=== PATIENT | female | born 1965 | race Caucasian/White ===

== ENCOUNTER 2020-03-28 08:33 | Outpatient (CLI) | payer MEDICARE, MEDICAID, SELFPAY ==
--- NOTE | 2020-03-28 07:30 | XR_ITS ---
WS: [id number] XR KUB [id number] REASON FOR EXAM: bladder stones FINDINGS: The bladder stones have increased in size now measure 4.6 cm. Versus 2.99 cm on previous ex am 10/24/2017 there are 3 large stones present. There is evidence of a gamma nail the right hip joint satisfactory place. There is nonspecific gas and fecal stasis. XR/XR KUB [id number] IMPRESSION: Dramatically enlargement of the renal calculus
== END 2020-03-28 08:34 | disposition home or self-care (01) ==
LOC: RAD 08:40
PROVIDERS: Family Provider Family Medicine; PCP Family Medicine; Visit Provider Urology
DX: N21.0 Calculus in bladder (principal); N20.0 Calculus of kidney
CPT/HCPCS: 74018

== ENCOUNTER 2020-04-01 11:00 | Day surgery (SDC) | payer MEDICARE, MEDICAID, SELFPAY ==
[2020-04-01] VITALS (10 sets, daily range): BP systolic 89–152; BP diastolic 56–99; PULSE 88–108; RESP 9–19; TEMP 36.2–36.9; O2SAT 96–100
--- NOTE | 2020-04-01 | SCC_ITS ---
Procedure Done: 1. Extracorporeal shockwave lithotripsy to the bladder stones 2. Cystolitholapaxy with laser and stone fragment removal 14.6 seconds of fluoroscopic guidance, for a cumulative dose of 3.67 mGy, was provided to Dr. Jackson by the radiology department. C-arm images of the abdomen were saved for the patient's permanent record. [facility]
--- NOTE | 2020-04-01 | SC_ITS ---
WS: [id number] C-arm FL for Urology REASON FOR EXAM: C-ARM PICS IN OR FINDINGS: A stent is now seen on the right side in good position the right kidney down to the bladder .. SC/C-arm FL for Urology IMPRESSION: Stent in good position on the right side.
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
[2020-04-01] MEDS: sodium chloride 0.9% 1,000 ML 30 ML IV (13:08)
[2020-04-01] MEDS: levofloxacin-dextrose 5 % 500 MG/100 ML PREMIX 100 MG IV (13:10)
--- NOTE | 2020-04-01 13:23 | W.PM.OPSUD ---
Surgery/Procedure H&P Update DATE OF PROCEDURE: April 01, 2020 DATE H&P PERFORMED: 03/28/20 H&P UPDATE INFORMATION: I have reviewed H&P completed within last 30 days, I have examined patient prior to procedure and No changes to prior documentation PREOP DIAGNOSIS: 3 large bladder stones PLANNED PROCEDURE: Operation Date: 04/01/20 13:00 Proposed Procedures p ESWL 51752 81745 N21.0(Not Applicable) - Jorge A Jackson MD s Cystolitholapaxy(Not Applicable) - Jorge A Jackson MD
--- NOTE | 2020-04-01 16:25 | P.OP_ITS ---
Operative Report Date of procedure: April 01, 2020 Pre-op Diagnosis: 3 large bladder stones Post-op diagnosis: same Procedure Done: 1. Extracorporeal shockwave lithotripsy to the bladder stones 2. Cystolitholapaxy with laser and stone fragment removal Implants: None Pathology: Large amount of stone fragments Surgeon: Renetta Anesthesia: General Estimated blood loss: Minimal Complications: None Condition: stable Disposition: PACU Brief History: Destiny is a very pleasant 55-year-old white female partial quadriplegic with history of neurogenic bladder because of her injury and history of bladder stone formation having cleared 8 of 11 stones about 2.5 years ago. Unfortunately she failed to follow-up to clear the final 3 stones and recently presented with increasing dysreflexia type symptoms, recurrent UTIs, and incontinence and was found to have that the 3 remaining stones had almost doubled in size. She was admitted for treatment of the stones with planned ESWL and if necessary cystolitholapaxy to complete. Procedure: After routine preoperative evaluation examination and obtaining of informed consent she was taken to the operating suite on 04/01/2020 where general anesthesia was administered without difficulty after appropriate timeout was performed, SCDs confirmed to be functioning, preoperative antibiotics administered, beta-arsalan protocol confirmed. Positioned on the Dornier unit in supine position with a shock head positioned anteriorly. The bladder was filled with about 180 cc of sterile water and her suprapubic tube was clamped. Stones were easily identified and shockwave was initiated at an intensity of 6 at a rate of 60 and all 3 stones were shocked in sequence and repetitively for a total of 3500 shocks with significant change noted. She was then positioned in dorsolithotomy position and prepped and draped in the usual sterile fashion paying careful attention to avoiding pressure points. 23 Hungarian cystoscope with 30 degree lens was introduced into the bladder without difficulty under videoscopy. An Ellik evacuator was utilized to remove the small fragments. The remained multiple large fragments and some moderate sized fragments that required laser lithotripsy. Over the next hour and 1/2 to 2 hours the laser was utilized to fragment the remaining pieces into small enough fragments to be able to remove with an Ellik evacuator through 25 Hungarian cystoscope. This was tedious but ultimately successful. The bladder was inspected carefully after all the pieces were removed and it was in very good shape with no significant trauma. The suprapubic tube was unplugged and confirmed to be functioning well and it was placed to dependent drainage. Tolerated procedure well without complications and was awakened in the operating room and returned to the recovery room in stable condition. PLANS: 1. Follow-up with KUB in 6 months in my office. 2. Reinforced the importance of compliance with follow-up to avoid these kind of conditions again.
--- NOTE | 2020-04-01 16:50 | SUR.PHASEI ---
1632 PT TO PACU RESTLESS, SHAKING, WARM BLANKETS X 4 TO PT , PT LEG BAG TO STOMA LT YELLOW URINE NOTED TO TUBING, BILAT [id number] AND WORKING PT DENIES PAIN 1650 PT RESTING MORE QUIETLY NOT SHIVERING NOW, ALERT WHEN AWAKENED
--- NOTE | 2020-04-01 17:17 | SUR.PHASEI ---
1704 PT SLEEPS IF NOT DISTURBED DENIES PAIN VSS REPORT TO OPS URINE FLOWING THRU LUU TUBE NO CLOTS OR ISSUES.
[2020-04-01] MEDS: ondansetron 2 mg/ML SDV 2 mL 4 MG IVP (18:22)
[2020-04-08 01:45] LABS: Stone Source BLADDER STONE
== END 2020-04-01 18:44 | disposition home or self-care (01) ==
PROVIDERS: Visit Provider Urology
PROC: (CPT 50590; principal; 2020-04-01 13:00)
PROC: 0TCB8ZZ Extirpation of Matter from Bladder, Via Natural or Artificial Opening Endoscopic (ICD-10-PCS; CPT 50590; 2020-04-01 13:00)
PROC: (CPT 50590; 2020-04-01 13:00)
DX: N21.0 Calculus in bladder (principal); G82.50 Quadriplegia, unspecified
CPT/HCPCS: 50590; 52318; 12345; 76000; 82365; 88300; 96365; J1956; J2405; J2704; J3010; J7030

== ENCOUNTER 2020-11-07 09:44 | Inpatient (IN) | payer MEDICARE, MEDICAID, SELFPAY ==
[2020-11-07] VITALS (10 sets, daily range): BP systolic 72–147; BP diastolic 32–112; PULSE 72–106; RESP 16–18; TEMP 35.7–36.6; O2SAT 95–100
--- NOTE | 2020-11-07 10:37 | CT_ITS ---
WS: [id number] CT ABDOMEN PELVIS TECHNIQUE: Contrast-enhanced CT of the abdomen and pelvis with coronal and sagittal reformatted image s. CLINICAL INFORMATION: abd pain COMPARISON: CT September 25, 2017 DLP: 187.[address] scans at [facility] use at least one of these dose optimization techniques: automat ed exposure control; mA and/or kV adjustment per patient size (includes targeted exams where dose is matched to clinical indication); or iterative reconstruction. FINDINGS: Mild hepatomegaly. Diffuse fatty infiltration of the liver. Gallbladder is contracted. Lung bases are well aerated. Normal spleen. Normal GE junction. Normal caliber abdominal aorta. Aortic calcificatio n. Adrenal glands are normal. Normal renal parenchymal enhancement. No hydronephrosis. Varicosities in the pelvis. Small amount of free fluid in the pelvis. Suprapubic catheter. Bladder is decompressed. No evidence of high-grade small or large bowel obstruction. Induration with thickening involving the distal sigmoid colon and rectum. Recommend correlation for distal colitis/proctitis. Small amount of edema and fluid in the left gluteal cleft. This is partially visualized. Degenerative disc disease T11-T12 progressed since 2017. CT/CT abdomen pelvis w con* [id number] IMPRESSION: 1. Suprapubic catheter. Bladder is decompressed. Previously described bladder calculi have been removed. 2. Small amount of free fluid in the pelvis with diffuse transmural thickening and submucosal enhancement involving the distal sigmoid and rectum. Recommend correlation for distal colitis/proctitis. 3. Small amount of edema partially visualized left gluteal cleft. Recommend cl inical correlation for decubitus ulceration in this area. 4. Pelvic varicosities likely incidental and appear Unchanged from previous. Notified Aguila Fragoso DO at 11/07/2020 11:46 AM.
--- NOTE | 2020-11-07 10:38 | ECG_ITS ---
[facility] Test Date: 2020-11-07 Pat Name: Destiny Baez Department: Room: Gender: Female Bank Secrecy Act Officer: : 1965 Requested By: Aguila Damon Order Number: [id number] Robb MD: Lisa Guerin M.D. Measurements Intervals [place] Rate: 73 P: 63 VA: 84 QRS: 42 QRSD: 100 T: 75 QT: 414 QTc: 458 Interpretive Statements SINUS RHYTHM WITH SHORT VA INTERVAL WITH OCCASIONAL SUPRAVENTRICULAR PREMATURE COMPLEXES POSSIBLE RIGHT VENTRICULAR CONDUCTION DELAY [RSR (QR) IN V1/V2] No previous ECG available for comparison Electronically Signed On 11-08-2020 19:40:45 HOTEL OR MOTEL MANAGER by Lisa Guerin M.D. [id number] f
--- NOTE | 2020-11-07 10:38 | XR_ITS ---
WS: [id number] XR chest 1V portable [id number] REASON FOR EXAM: dyspnea/cough FINDINGS: The heart and mediastinum are within normal limits. Calcified granulomatous changes in both hemithoraces. No active pulmonary parenchymal or pleural disease. Thoracic scoliosis convex right. XR/XR chest 1V portable [id number] IMPRESSION: No acute chest abnormality.
--- NOTE | 2020-11-07 11:09 | W.ED.GENADLT ---
HPI - General Adult General: Chief complaint: General Medical Stated complaint: High BP Time Seen by Provider: 11/07/20 10:16 History of Present Illness: HPI narrative: 55-year-old female presents emergency room with complaint of swelling spell she has had for the last several months she estimates similar range of 3 to 4 months. She states they only happen when she is in a wheelchair. She is wheelchair-bound secondary to a cervical cord injury at C6-7 level. She denies any chest pain denies any shortness of breath or abdominal pain she states that when she is in her chair she crosses her legs her symptoms get better. Has not noticed any other exacerbating or relieving factors. Onset (ago): month(s) Severity: moderate Relieving factors: none Exacerbating factors: other (Sitting in chair) Associated symptoms: Reports diaphoresis; Deny chest pain, confusion, cough, decreased appetite, dyspnea, fevers/chills, headache(s), malaise, nausea, rash, palpitations, seizures, short of breath, syncope, vomiting or weakness Treatments prior to arrival: none Review of Systems Const: Reports: diaphoresis; Denies: malaise ENMT: Denies: throat pain, ear or mastoid pain, nasal discharge or nasal congestion Card: Denies: chest pain, palpitations or syncope Resp: Denies: dyspnea GI: Denies: vomiting : Denies: flank pain, difficulty voiding, dysuria, urinary frequency or urinary urgency Skin/Breast: Denies: rash Neuro: Denies: headache(s) PFSH ED PFSH: Medical History Autonomic dysreflexia Neurogenic bladder Quadriplegia Urinary retention Social History Smoking and tobacco status: never smoked Alcohol intake: current Alcohol intake frequency: holidays/special occasions only Adopted: No Caregiver/support person: No Lives independently: Yes Marital status: Current occupational status: employed History of recent travel: No Current gender identity: Female Physical Exam Const: COMMON NORMALS: no acute distress GENERAL APPEARANCE: cooperative and comfortable ORIENTATION/CONSCIOUSNESS: Yes awake, Yes oriented to person, Yes oriented to place and Yes oriented to time HENMT: COMMON NORMALS: normocephalic, atraumatic and hearing grossly normal bilaterally HEAD & SCALP: normocephalic and atraumatic Neck/C-Spine: COMMON NORMALS: no JVD Resp: COMMON NORMALS: normal respiratory effort, No retractions, No use of accessory muscles and clear to auscultation bilaterally AUSCULTATION: clear to auscultation bilaterally Cardio: COMMON NORMALS: no JVD, regular rate, regular rhythm and No murmurs present (Cardio) RATE: regular rate RHYTHM: regular rhythm GI: COMMON NORMALS: Soft to palpation and No hepatosplenomegaly present AUSCULTATION: Yes normoactive bowel sounds PALPATION: Yes Soft to palpation, No Tenderness to palpation present (GI), No Guarding due to palpation present (GI) and Yes No hepatosplenomegaly present Neuro: SENSORIUM/ORIENTATION: Yes oriented to person, Yes oriented to place and Yes oriented to time Skin: NARRATIVE SKIN EXAM: Open ulceration 3 to 4 cm irregular wound with exposure of subcutaneous tissue at the gluteal fold on the left. CT reading see below there is a large phlegmon. Course Vital Signs: Vital signs: Vital Signs Pulse Rate 77 11/07/20 12:02 Respiratory Rate 16 11/07/20 12:02 Blood Pressure 147/65 11/07/20 12:02 Pulse Oximetry 99 11/07/20 12:02 MDM - General Adult MDM Narrative: Medical decision making narrative: Gluteal abscess I think is the source of her sweats. Fortunately her white count is not elevated however I think this will continue to fester if it is not debrided. Cultures done we will start her on Zosyn and vancomycin discussed with Dr. Morrow and also discussed with Dr. Webster. Hospitalist admit surgery to consult we swabbed her for Covid as well in anticipation of surgical debridement. Urine shows some contamination. I do not believe it is an actual infection culture is being done she has an indwelling Ramos. Lab Data: Labs: Lab Results 11/07/20 11/07/20 11/07/20 Range/Units 11:08 11:20 11:20 WBC (4.0-10.0) 10^3/ uL RBC (4.1-5.3) 10^6/u L Hgb (11.5-15.3) g/dL Hct (37.0-47.0) % MCV (81-99) fL MCH (28.0-34.0) pg MCHC (30.0-36.0) g/dL RDW (12.1-15.1) % Plt Count (130-400) 10^3/c mm MPV (7.4-10.4) fL Neut % (Auto) % Lymph % (Auto) % [place] % (Auto) % Eos % (Auto) % Baso % (Auto) % Neut # (Auto) (1.8-7.7) 10^3/u L Lymph # (Auto) (0.8-4.8) 10^3/u L [place] # (Auto) (0.2-0.9) 10^3/u L Eos # (Auto) (0.0-0.8) 10^3/u L Baso # (Auto) (0.0-0.1) 10^3/u L Nucleated RBC % (a uto) % Nucleated RBCs # /100WBC Specimen Type Arterial Sample Site Radial, right ABG pH 7.41 (7.35-7.45) ABG pCO2 41.0 (35-45) mmHg ABG pO2 94.0 (80.0-100.0) mmH g ABG HCO3 26.2 H (22-26) mmol/L ABG O2 Saturation 97.9 ABG Base Excess 1.4 (-2.0-2.0) mmol/ L Angel Luis Test Pos A-a O2 Gradient 0.8 L (5-10) mmHg Hematocrit 33.4 L (37-47) % Hgb O2 Saturation 96.0 (95-100) % Carboxyhemoglobin 1.1 (0.4-20.1) %THgb Methemoglobin 0.9 (0.4-1.5) % Total Hemoglobin 10.9 L (12-16) g/dL Sodium 136.0 136 (131-143) mmol/L Potassium 3.9 4.1 (3.5-5.0) mmol/L Glucose 87.0 89 (70-115) mg/dL Ionized Calcium 1.2 (1.1-1.4) mmol/L O2 Delivery Device Room air FiO2 21.0 % Brick Extruder Operator ID glc Chloride 102 (98-107) mmol/L Carbon Dioxide 27 (22-29) mmol/L Anion Gap 11.1 (5-19) BUN 8 (6-20) mg/dL Creatinine 0.2 L (0.5-0.9) mg/dL GFR Calculation 368.8 H (90-130) mL/min Calculated Osmolal ity 280 L (285-295) mOsm/k g Lactic Acid 1.0 (0.5-2.2) mmol/L Calcium 8.6 (8.5-10.5) mg/dL Total Bilirubin 0.3 (0.15-1.2) mg/dL AST 12 (0-32) U/L ALT 10 (0-33) U/L Alkaline Phosphata se 116 H (35-105) IU/L Creatine Kinase 97 (26-192) U/L Troponin T Baselin e (0-10) ng/L Total Protein 5.7 L (6.6-8.7) g/dL Albumin 3.4 L (3.5-5.2) g/dL Globulin 2.3 (1.3-4.6) g/dL Lipase 20 (13-60) U/L TSH 0.56 (0.27-4.20) uIU/ mL Free T4 1.39 (0.82-1.77) ng/d L Urine Color (Yellow) Urine Appearance (CLEAR) Urine pH (5-7) Ur Specific Gravit y (1.005-1.030) Urine Protein (Negative) Urine Glucose (UA) (Normal) Urine Ketones (Negative) Urine Blood (Negative) Urine Nitrate (Negative) Urine Bilirubin (Negative) Urine Urobilinogen (Negative) mg/dL Ur Leukocyte Alice ase (Negative) Urine RBC (0-2) /hpf Urine WBC (0-5) /hpf Ur Squamous Epith Cells (0-5) /hpf Amorphous Sediment Urine Bacteria (NONE) /hpf Urine Mucus /hpf 11/07/20 11/07/20 11/07/20 Range/Units 11:20 11:20 11:20 WBC 7.7 (4.0-10.0) 10^3/ uL RBC 3.56 L (4.1-5.3) 10^6/u L Hgb 10.5 L (11.5-15.3) g/dL Hct 33.2 L (37.0-47.0) % MCV 93.3 (81-99) fL MCH 29.5 (28.0-34.0) pg MCHC 31.6 (30.0-36.0) g/dL RDW 11.9 L (12.1-15.1) % Plt Count 324 (130-400) 10^3/c mm MPV 9.4 (7.4-10.4) fL Neut % (Auto) 69.2 % Lymph % (Auto) 18.2 % [place] % (Auto) 10.9 % Eos % (Auto) 0.9 % Baso % (Auto) 0.5 % Neut # (Auto) 5.33 (1.8-7.7) 10^3/u L Lymph # (Auto) 1.4 (0.8-4.8) 10^3/u L [place] # (Auto) 0.8 (0.2-0.9) 10^3/u L Eos # (Auto) 0.1 (0.0-0.8) 10^3/u L Baso # (Auto) 0.0 (0.0-0.1) 10^3/u L Nucleated RBC % (a uto) 0 % Nucleated RBCs # 0.0 /100WBC Specimen Type Sample Site ABG pH (7.35-7.45) ABG pCO2 (35-45) mmHg ABG pO2 (80.0-100.0) mmH g ABG HCO3 (22-26) mmol/L ABG O2 Saturation ABG Base Excess (-2.0-2.0) mmol/ L Angel Luis Test A-a O2 Gradient (5-10) mmHg Hematocrit (37-47) % Hgb O2 Saturation (95-100) % Carboxyhemoglobin (0.4-20.1) %THgb Methemoglobin (0.4-1.5) % Total Hemoglobin (12-16) g/dL Sodium (131-143) mmol/L Potassium (3.5-5.0) mmol/L Glucose (70-115) mg/dL Ionized Calcium (1.1-1.4) mmol/L O2 Delivery Device FiO2 % Brick Extruder Operator ID Chloride (98-107) mmol/L Carbon Dioxide (22-29) mmol/L Anion Gap (5-19) BUN (6-20) mg/dL Creatinine (0.5-0.9) mg/dL GFR Calculation (90-130) mL/min Calculated Osmolal ity (285-295) mOsm/k g Lactic Acid (0.5-2.2) mmol/L Calcium (8.5-10.5) mg/dL Total Bilirubin (0.15-1.2) mg/dL AST (0-32) U/L ALT (0-33) U/L Alkaline Phosphata se (35-105) IU/L Creatine Kinase (26-192) U/L Troponin T Baselin e 8 (0-10) ng/L Total Protein (6.6-8.7) g/dL Albumin (3.5-5.2) g/dL Globulin (1.3-4.6) g/dL Lipase (13-60) U/L TSH (0.27-4.20) uIU/ mL Free T4 (0.82-1.77) ng/d L Urine Color Yellow (Yellow) Urine Appearance Clear (CLEAR) Urine pH 5 (5-7) Ur Specific Gravit y 1.020 (1.005-1.030) Urine Protein Neg (Negative) Urine Glucose (UA) Norm (Normal) Urine Ketones 1+ H (Negative) Urine Blood Neg (Negative) Urine Nitrate Positive H (Negative) Urine Bilirubin Neg (Negative) Urine Urobilinogen Norm (Negative) mg/dL Ur Leukocyte Alice ase 1+ H (Negative) Urine RBC None (0-2) /hpf Urine WBC 0-4 H (0-5) /hpf Ur Squamous Epith Cells 0-4 H (0-5) /hpf Amorphous Sediment Not Reportable Urine Bacteria 2+ H (NONE) /hpf Urine Mucus 1+ /hpf Discharge Plan Discharge Patient Disposition: Admitted As Inpatient Clinical Impression: Abscess, gluteal, left, Quadriplegia Condition: Stable Coding Level of Care Code ED Bankruptcy Legal Assistant for g Fwd Exam Detailed
[2020-11-07 11:20] LABS: ABG PH Result 7.41 (7.35-7.45); Alveolar-Arterial Oxygen Gradi 0.8 mmHg (5-10); Arterial Blood Gas Hematocrit 33.4 % (37-47); Base Excess ABG 1.4 mmol/L (-2.0-2.0); Blood Gas Allen Test Pos; Blood Gas Operator Identificat glc; Blood Gas Sample Site Radial, right; Blood Gas Sample Type Arterial; Carboxyhemoglobin 1.1 %THgb (0.4-20.1); HCO3 ABG 26.2 mmol/L (22-26); Ionized Calcium Level - ABG 1.2 mmol/L (1.1-1.4); Methemoglobin 0.9 % (0.4-1.5); Oxygen Device ROOM AIR; Oxygen Saturation ABG 97.9; Potassium Level - ABG 3.9 mmol/L (3.5-5.0); Total Hemoglobin 10.9 g/dL (12-16)
[2020-11-07 11:42] LABS: Basophils % 0.5 %; Eosinophils # 0.1 10^3/uL (0.0-0.8); Eosinophils % 0.9 %; Hematocrit 33.2 % (37.0-47.0); Hemoglobin 10.5 g/dL (11.5-15.3); Lymphocytes # 1.4 10^3/uL (0.8-4.8); Lymphocytes % 18.2 %; Mean Corpuscular HGB Conc 31.6 g/dL (30.0-36.0); Mean Corpuscular Hemoglobin 29.5 pg (28.0-34.0); Mean Corpuscular Volume 93.3 fL (81-99); Mean Platelet Volume 9.4 fL (7.4-10.4); Monocytes # 0.8 10^3/uL (0.2-0.9); Monocytes % 10.9 %; Neutrophils # 5.33 10^3/uL (1.8-7.7); Neutrophils % 69.2 %; Nucleated Red Blood Cells % 0 %; Platelet Count 324 10^3/cmm (130-400); Red Blood Count 3.56 10^6/uL (4.1-5.3); Red Cell Distribution Width 11.9 % (12.1-15.1); White Blood Count 7.7 10^3/uL (4.0-10.0)
--- NOTE | 2020-11-07 12:04 | CT_ITS ---
WS: [id number] Contrast enhanced CTA of the left pelvis and lower extremity TECHNIQUE: Contrast enhanced CTA with coronal and sagittal reformatted images. CLINICAL INFORMATION: ABSCESS L BUTTOCK COMPARISON: CT abdomen pelvis earlier today DLP: 345.[address] scans at [facility] use at least one of these dose optimization techniques: automat ed exposure control; mA and/or kV adjustment per patient size (includes targeted exams where dose is matched to clinical indication); or iterative reconstruction. FINDINGS: In the left gluteal cleft there is soft tissue thickening with surrounding induration extending to th e perineum and adjacent skin with ulceration. Central low-attenuation phlegmon/abscess. Small amount of central air measures 2.2 x 1.2 x 2.1 cm. Induration and soft tissue edema extending to the left po sterior inferior pubic ramus with a small amount of adjacent sclerosis. No evidence of destructive os teomyelitis. Osteopenia. Partially visualized pelvic varicosities. Suprapubic catheter. A few prominent left ingui nal lymph nodes likely reactive. Left common femoral and superficial femoral arteries are patent. CT/[place] [id number] IMPRESSION: 1. Ulceration involving the left gluteal region extending to the perineum with diffuse soft tissue thickening and small central fluid-filled cavitation measu ring 2.2 x 1.2 x 2.1 cm consistent with phlegmon/abscess. This does not appear easily drainable. 2. Small amount of sclerosis in the adjacent left pubic ramus. No destructive osteomyelitis. 3. Focal ulceration along the medial gluteal cleft/peritoneum measures 2.3 x 1 .9 cm Attempted notification Aguila Fragoso DO at 11/07/2020 1:01 PM.
[2020-11-07 12:12] LABS: Troponin(5th) Baseline 8 ng/L (0-10)
[2020-11-07 12:19] LABS: Alanine Aminotransferase 10 U/L (0-33); Albumin Level 3.4 g/dL (3.5-5.2); Alkaline Phosphatase 116 IU/L (35-105); Anion Gap 11.1 (5-19); Aspartate Amino Transferase 12 U/L (0-32); Blood Urea Nitrogen 8 mg/dL (6-20); Calcium 8.6 mg/dL (8.5-10.5); Carbon Dioxide 27 mmol/L (22-29); Chloride 102 mmol/L (98-107); Creatine Phosphokinase 97 U/L (26-192); Free T4 Free Thyroxine 1.39 ng/dL (0.82-1.77); Globulin 2.3 g/dL (1.3-4.6); Glomerular Filtration Rate 368.8 mL/min (90-130); Glucose 89 mg/dL (65-115); Lipase 20 U/L (13-60); Osmolality Calculated 280 mOsm/kg (285-295); Potassium 4.1 mmol/L (3.5-5.1); Sodium 136 mmol/L (136-145); Thyroid Stimulating Hormone 0.56 uIU/mL (0.27-4.20); Total Bilirubin 0.3 mg/dL (0.15-1.2); Total Protein 5.7 g/dL (6.6-8.7)
[2020-11-07 12:23] LABS: Urine Appearance Clear (CLEAR); Urine Color Yellow (Yellow); pH Urine 5 (5-7)
[2020-11-07 12:24] LABS: Add Urine Microscopic? YES; Bacteria Urine 2+ /hpf; Bilirubin Urine Neg (Negative); Blood Urine Neg (Negative); Glucose Urine UA Norm (Normal); Ketones Urine 1+ (Negative); Leukocyte Esterase Urine 1+ (Negative); Nitrate Urine Positive (Negative); Protein Urine Neg (Negative); Squamous Epithelial Cell Urine 0-4 /hpf (0-5); Urobilinogen Urine Norm (Negative); WBC Urine 0-4 /hpf (0-5)
[2020-11-07 12:25] LABS: Add Urine Culture? Yes; Mucus Urine 1+ /hpf
--- NOTE | 2020-11-07 12:38 | ECG_ITS ---
[facility] Test Date: 2020-11-07 Pat Name: Destiny Baez Department: Room: Gender: Female Superintendent Distribution: : 1965 Requested By: Aguila Damon Order Number: [id number] Robb MD: Lisa Guerin M.D. Measurements Intervals [place] Rate: 72 P: 62 LA: 100 QRS: 61 QRSD: 90 T: 75 QT: 390 QTc: 430 Interpretive Statements SINUS RHYTHM WITH SHORT LA INTERVAL POSSIBLE RIGHT VENTRICULAR CONDUCTION DELAY [RSR (QR) IN V1/V2] VOLTAGE CRITERIA FOR LVH [MEETS CRITERIA IN ONE OF: R(aVL), S(V1), R(V5), R(V5/V6)+S(V1)] Compared to ECG 11/07/2020 11:11:26 Left ventricular hypertrophy now present Electronically Signed On 11-08-2020 20:15:27 MIRROR SILVERER by Lisa Guerin M.D. [email or web address] women [email or web address] [email or web address].[email or web address]/[id number] f
[2020-11-07] MEDS: iohexol 350 mg/mL 100 mL Btl IV (12:49)
[2020-11-07] MEDS: levofloxacin-dextrose 5 % 750 MG/150 ML PREMIX 100 MG IV (13:22)
[2020-11-07] MEDS: vancomycin 1,000 MG in sodium chloride 0.9% 250 ML 250 MG IV (13:22)
[2020-11-07 13:54] LABS: Troponin 5 2HR 8.17 ng/L (0-10); Troponin 5 2HR Delta 0.17 ABS# (0-10)
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
--- NOTE | 2020-11-07 15:55 | PC.NURSE ---
Room not clean. Primary nurse will call back once room is ready.
--- NOTE | 2020-11-07 16:38 | ECG_ITS ---
[facility] Test Date: 2020-11-07 Pat Name: Destiny Baez Department: Room: Gender: Female Core Shaper: : [id number] Requested By: Aguila Damon Order Number: [id number] Robb MD: Lisa Guerin M.D. Measurements Intervals Daniels Rate: 85 P: 69 MD: 94 QRS: 66 QRSD: 90 T: 76 QT: 377 QTc: 450 Interpretive Statements SINUS RHYTHM WITH SHORT MD INTERVAL POSSIBLE RIGHT VENTRICULAR CONDUCTION DELAY [RSR (QR) IN V1/V2] MODERATE VOLTAGE CRITERIA FOR LVH, CONSIDER NORMAL VARIANT [MEETS CRITERIA IN ONE OF: R(aVL), S(V1), R(V5), R(V5/V6)+S(V1)] Compared to ECG 11/07/2020 12:47:24 No significant changes Electronically Signed On 11-08-2020 20:10:41 CNC GRINDER by Lisa Guerin M.D. [email or web address]
--- NOTE | 2020-11-07 16:56 | PC.NURSE ---
Room not ready. Nurse will call once ready.
[2020-11-07 17:41] LABS: Troponin 5 6HR 8.17 ng/L (0-10); Troponin 5 6HR Delta 0.17 ng/L (0-12)
[2020-11-07 18:29] LABS: Glucose Point of Care 107 mg/dL (70-110)
[2020-11-07] MEDS: lactated ringers 1,000 ML 30 ML IV (18:35)
[2020-11-07] MEDS: famotidine 20 mg Tablet PO (18:35)
[2020-11-07] MEDS: oxybutynin 5 mg Tablet PO (20:58)
[2020-11-07] MEDS: vancomycin 750 MG in sodium chloride 0.9% 250 ML 250 MG IV (20:59)
[2020-11-08] VITALS (12 sets, daily range): BP systolic 77–158; BP diastolic 52–88; PULSE 68–93; RESP 16–20; TEMP 36.6–37.9; O2SAT 94–99
[2020-11-08 04:20] LABS: Basophils % 0.7 %; Eosinophils # 0.1 10^3/uL (0.0-0.8); Eosinophils % 2.2 %; Hematocrit 32.8 % (37.0-47.0); Hemoglobin 10.4 g/dL (11.5-15.3); Lymphocytes # 1.8 10^3/uL (0.8-4.8); Lymphocytes % 33.4 %; Mean Corpuscular HGB Conc 31.7 g/dL (30.0-36.0); Mean Corpuscular Hemoglobin 28.9 pg (28.0-34.0); Mean Corpuscular Volume 91.1 fL (81-99); Monocytes # 0.7 10^3/uL (0.2-0.9); Monocytes % 12.5 %; Neutrophils # 2.73 10^3/uL (1.8-7.7); Nucleated Red Blood Cells % 0 %; Platelet Count 314 10^3/cmm (130-400); Red Cell Distribution Width 12.1 % (12.1-15.1); White Blood Count 5.4 10^3/uL (4.0-10.0)
[2020-11-08 04:41] LABS: Alanine Aminotransferase < 5 U/L (0-33); Albumin Level 3.2 g/dL (3.5-5.2); Alkaline Phosphatase 111 IU/L (35-105); Anion Gap 10.8 (5-19); Aspartate Amino Transferase 8 U/L (0-32); Blood Urea Nitrogen 8 mg/dL (6-20); Calcium 8.9 mg/dL (8.5-10.5); Carbon Dioxide 27 mmol/L (22-29); Chloride 105 mmol/L (98-107); Globulin 2.9 g/dL (1.3-4.6); Glucose 107 mg/dL (65-115); Magnesium 1.9 mg/dL (1.7-2.3); Osmolality Calculated 287 mOsm/kg (285-295); Potassium 3.8 mmol/L (3.5-5.1); Sodium 139 mmol/L (136-145); Total Bilirubin 0.2 mg/dL (0.15-1.2); Total Protein 6.1 g/dL (6.6-8.7)
[2020-11-08 04:42] LABS: Ferritin 151 ng/mL (15-150); Iron 21 ug/dL (37-145); Percent Saturation 13.6 % (20-50); Total Iron Binding Capacity 154 mcg/dl; Unsaturated Iron Binding 133 ug/dL (112-347)
[2020-11-08 04:58] LABS: Vitamin B12 417 pg/mL (232-1245)
[2020-11-08] MEDS: oxybutynin 5 mg Tablet PO ×2 (06:02→21:53)
[2020-11-08] MEDS: vancomycin 750 MG in sodium chloride 0.9% 250 ML 250 MG IV ×3 (06:02→21:53)
[2020-11-08 06:25] LABS: Folate Level 12.8 ng/mL (4.8-37.3)
[2020-11-08] MEDS: levofloxacin-dextrose 5 % 500 MG/100 ML PREMIX 100 MG IV (08:10)
--- NOTE | 2020-11-08 08:47 | PM.PN ---
Subjective Subjective: Interval history: Patient denies shortness of breath or chest pain this morning. She is n.p.o. this morning and is scheduled to have debridement procedure. Covid test is still pending. Vitals/I&O/Wt Last Vital Signs Temp 98.8 F 11/08/20 07:57 Pulse 69 11/08/20 07:57 Resp 18 11/08/20 07:57 BP 158/52 11/08/20 07:57 Pulse Ox 97 11/08/20 07:57 11/07/20 11/08/20 11/08/20 22:59 06:59 14:59 Intake Total 370 / 370 Output Total 1300 / 1300 Balance 370 / 370 -1300 / -930 Weight last 48 hrs Weight 54.431 kg Physical Exam Narrative: EXAM NARRATIVE: Patient is alert and oriented x3. She is not in any distress. Her heart is regular and lungs are clear. Abdomen is soft. She is moving her upper extremities well except her hands. Both lower extremities are paralyzed. Data : 11/08/20 04:00 11/08/20 04:00 Micro: Microbiology 11/07/20 17:10 Blood Culture - Preliminary Blood SPECIMEN COLLECTED 11/07/20 11:25 Blood Culture - Preliminary Blood SPECIMEN COLLECTED A&P Assessment and plan (1) Abscess, gluteal, left: Status: Acute (2) Neurogenic bladder: Status: Acute (3) Quadriplegia: Status: Acute (4) Anemia: Appears chronic normocytic with some evidence of iron deficiency but normal vitamin B12 and folate level. Status: Acute (5) Constipation due to neurogenic bowel: Status: Acute Additional A&P Information PLAN: Continue vancomycin and Levaquin as well as rest of the medications including IV fluids Awaiting surgical debridement. Attestations Medical Necessity Statement*: Patient with abscess requires close inpatient monitoring and treatment including surgical intervention. Coding Level of Care Code Acute Collar Packer for [facility] Diagnoses Abscess, gluteal, left L02.31 Neurogenic bladder N31.9 Quadriplegia G82.50 Anemia D64.9 Constipation due to neurogenic bowel K59.00
--- NOTE | 2020-11-08 09:23 | PC.NURSE ---
surgery Pt went down to surgery at 0859.
--- NOTE | 2020-11-08 09:27 | PC.OT ---
OT NOTE: HOLD EVALUATION TODAY DUE TO SCHEDULED I&D
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
[2020-11-08] MEDS: lidocaine 2% INJ 20 mL INJECTION (12:35)
--- NOTE | 2020-11-08 12:43 | PM.OP ---
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 Procedure Done: Incision and drainage of left gluteal abscess Sharp debridement of abscess cavity Implants: Large piece of Surgicel followed by packing 1 inch Nu Gauze impregnated and lidocaine 2% Specimens removed/disposition: Swabs for cultures and sensitivities Tissues for cultures and sensitivities Surgeon: Cristian Bell Inside Sales Executive: technical operations specialist Emmanuelle and medical student Miryam Harris nurse Chuyita Anesthesia: MAC (Nirali Carrington) Estimated blood loss (mL): 5 Condition: stable Disposition: floor Brief History: This is a pleasant 55 years old female patient presents with left gluteal abscess as pressure injury ulcer.Further history taking physical examination and reviewing the chart and images with my personal interpretation.I did preparole counseling aide the patient for incision and drainage in the OR and she did agree to proceed accordingly. Procedure: Patient was identified in the holding area and was taken back to the operating room and the correct site and side were marked by me, patient was first placed in supine position IV propofol was infused by the anesthesia provider, patient was already on therapy IV antibiotics were given per protocol,Time-out was done verifying the patient's name/date of /planned procedure and destination after the procedure, all were in agreement. Patient was then placed a right lateral position position were all pressure points were padded, Prep and drape was done thereafter under the usual sterile technique. The size of the ulcer looked to be smaller than the one appreciated yesterday likely patient was having edema that subsided,left perianal abscess was appreciated with the measurements of 2.5 x 2.5 x [address] to the muscle layer. Sinus draining pus was appreciated, hemostat was introduced after swabs were taken for culture and there was an undermining between 6 and 9:00 with a distance about 4 cm caudad. Drainage of the abscess cavity was done and all loculations were taken down by the examining finger.Appropriate and sharp curettage was done to the abscess cavity followed by copious and thorough irrigation. Hemostasis was then achieved. I decided at this point to introduce a vessel loop with a counter incision caudad towards the undermining portion of the ulcer for flossing in the future, a large piece of Surgicel was introduced into the abscess cavity to secure hemostasis followed by packing with 1 inch Nu Gauze impregnated and lidocaine 1%.followed by ABD.A surgical pants was then placed to hold the dressing in place. The vessel loop was tied down with 3-0 silk sutures. Predebridement measurements 2.5 x 2.5 x 0[address] to the muscle layer Post debridement measurements 2.5 x 2.5 x 0[address] to the muscle layer Count was completed at the end of the procedure, patient was then taken to the recovery room in stable condition I was present for the whole entire procedure
--- NOTE | 2020-11-08 14:56 | ANE.PACU2 ---
Inpatient post-anesthesia follow up: Airway intact: Yes Vital signs: Temperature 98.4 F Pulse Rate [Left R adial] 106 Pulse Rate 74 Respiratory Rate 18 Blood Pressure [Le ft Arm] 145/112 Blood Pressure 118/79 Pulse Oximetry 94 Oxygen Delivery Me thod Room Air Oxygen Flow Rate Fraction of Inspir ed Oxygen Hydration adequate: Yes Nausea and vomiting: No Pain level: 2 Mental status: Baseline
[2020-11-08] MEDS: morphine 4 mg/mL SDV 1 mL 2 MG IVP (15:29)
[2020-11-08 16:05] LABS: Coronavirus Lab Test PTC Negative
[2020-11-08] MEDS: famotidine 20 mg Tablet PO (17:16)
[2020-11-09 04:41] VITALS: BP 132/77; PULSE 87; RESP 18; TEMP 37.1; O2SAT 96
[2020-11-09 05:28] LABS: Alanine Aminotransferase 8 U/L (0-33); Alkaline Phosphatase 100 IU/L (35-105); Aspartate Amino Transferase 9 U/L (0-32); Blood Urea Nitrogen 8 mg/dL (6-20); Calcium 8.4 mg/dL (8.5-10.5); Carbon Dioxide 26 mmol/L (22-29); Chloride 105 mmol/L (98-107); Globulin 2.6 g/dL (1.3-4.6); Glucose 115 mg/dL (65-115); Osmolality Calculated 287 mOsm/kg (285-295); Sodium 139 mmol/L (136-145); Total Bilirubin 0.2 mg/dL (0.15-1.2); Total Protein 5.6 g/dL (6.6-8.7)
[2020-11-09] MEDS: vancomycin 750 MG in sodium chloride 0.9% 250 ML 250 MG IV ×3 (05:30→20:47)
[2020-11-09] MEDS: lactated ringers 1,000 ML 30 ML IV (05:30)
[2020-11-09] MEDS: oxybutynin 5 mg Tablet PO ×2 (06:17→20:46)
--- NOTE | 2020-11-09 07:27 | PM.PN ---
Subjective Subjective: Interval history: Patient is stable, no acute events overnight, undergone incision and drainage of left gluteal abscess stage IV. Cultures were sent. Vitals/I&O/Wt Last Vital Signs Temp 98.7 F 11/09/20 04:41 Pulse 87 11/09/20 04:41 Resp 18 11/09/20 04:41 BP 132/77 11/09/20 04:41 Pulse Ox 96 11/09/20 04:41 11/08/20 11/09/20 11/09/20 22:59 06:59 14:59 Intake Total 500 / 1110 1000 / 2110 Output Total 675 / 680 1000 / 1680 Balance -175 / 430 0 / 430 Weight last 48 hrs Weight 120 lb Physical Exam Narrative: EXAM NARRATIVE: Patient is conscious alert oriented X3 BMI 20 Physical examination was done in the presence of patient's caring nurse Patricai Left gluteal abscess cavity is clean no residual purulent discharge and vessel loop in place. No surrounding cellulitis. Surgicel and packing was removed by me bedside and flushing of the wound was done with saline flushes followed by repacking with 1 inch Nu Gauze then ABD and paper tape. Data : 11/08/20 04:00 11/09/20 04:13 Micro: Microbiology 11/07/20 17:10 Blood Culture - Preliminary Blood NEGATIVE TO DATE 11/08/20 12:39 Gram Stain - Final Buttock 11/08/20 12:39 Gram Stain - Final Buttock 11/07/20 11:25 Blood Culture - Preliminary Blood NEGATIVE TO DATE A&P Assessment and plan (1) Abscess, gluteal, left: From surgical standpoint of view: 1-nutrition optimization 2-wound care in the form of packing the wound daily with 1 inch Nu Gauze wet-to-dry using saline, vessel loop flossing after irrigation of the wound with saline followed by ABDs 3-management of medical comorbidities 4-physical therapy consultation when needed 5-assurance and education 6-follow-up at the wound care center on weekly basis. 7-we will defer antimicrobial therapy to hospitalist service based on cultures and sensitivities 8-offloading and a doughnut should be used to avoid pressure on the ulcer cavity From surgical standpoint of view patient can be discharged and follow-up at the wound care center. Assurance and education All questions have been answered and all concerns have been addressed to patient's satisfaction. Status: Acute Attestations Medical Necessity Statement*: Continue hospitalization for medical and surgical care for now Time Spent in Patient Care: 16 - 35 minutes (>than 50% of time spent in counselling and/or direct pt care on unit). 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
[2020-11-09 08:00] VITALS: BP 124/75; PULSE 93; RESP 16; TEMP 37.3; O2SAT 96
[2020-11-09] MEDS: famotidine 20 mg Tablet PO ×2 (08:25→18:00)
[2020-11-09] MEDS: levofloxacin-dextrose 5 % 500 MG/100 ML PREMIX 100 MG IV (08:25)
[2020-11-09 11:19] VITALS: BP 97/56; PULSE 94; RESP 16; TEMP 37.9; O2SAT 93
[2020-11-09 11:57] VITALS: BP 117/72; PULSE 88; TEMP 38.1; O2SAT 96
--- NOTE | 2020-11-09 13:23 | P.PN_ITS ---
Subjective Subjective: Interval history: Patient denies shortness of breath or chest pain this morning. Reports that every time she sits up her body shifts and bends over the left side which is likely the reason of her getting this ulcer. She is asking if there is any brace or support she can get to avoid this bending when she sits in her chair. When laying flat she is straight. She noted to have fever 100.[address] Perez yesterday. She has stage IV ulcer involving muscle but not the bone. Cultures are still pending. Vitals/I&O/Wt Last Vital Signs Temp 100.6 F H 11/09/20 11:57 Pulse 88 11/09/20 11:57 Resp 16 11/09/20 11:19 BP 117/72 11/09/20 11:57 Pulse Ox 96 11/09/20 11:57 11/08/20 11/09/20 11/09/20 22:59 06:59 14:59 Intake Total 500 / 1210 1000 / 2210 192 / 192 Output Total 675 / 680 1000 / 1680 Balance -175 / 530 0 / 530 192 / 192 Physical Exam Narrative: EXAM NARRATIVE: Patient is alert and oriented x3. She is not in any distress. Her heart is regular and lungs are clear. Abdomen is soft. She is moving her upper extremities well except her hands. Both lower extremities are paralyzed. Data : 11/08/20 04:00 11/09/20 04:13 Micro: Microbiology 11/08/20 12:39 Gram Stain - Final Buttock Tissue Culture - Preliminary 11/08/20 12:39 Gram Stain - Final Buttock Wound Culture - Preliminary 11/07/20 11:20 Urine Culture - Final Urine,Clean Catch Enterococcus faecalis 11/07/20 17:10 Blood Culture - Preliminary Blood NEGATIVE TO DATE 11/07/20 11:25 Blood Culture - Preliminary Blood NEGATIVE TO DATE A&P Assessment and plan (1) Abscess, gluteal, left: Status: Acute (2) Neurogenic bladder: Status: Acute (3) Quadriplegia: Status: Acute (4) Anemia: Appears chronic normocytic with some evidence of iron deficiency but normal vitamin B12 and folate level. Status: Acute (5) Constipation due to neurogenic bowel: Status: Acute Additional A&P Information PLAN: Continue vancomycin and Levaquin as well as IV fluids. Awaiting culture results Will touch base with Dr. Jacobsen to see if anything can be done from orthopedic standpoint to keep patient's body straight when she sits up. Awaiting appropriate equipment to be arranged for patient to be discharged. Attestations Medical Necessity Statement*: Patient with stage IV ulcer and now with episodes of fever requires close inpatient monitoring and treatment until cultures are back for appropriate oral antibiotic transition. 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
[2020-11-09 15:44] VITALS: BP 131/73; PULSE 94; RESP 16; TEMP 37.9; O2SAT 97
[2020-11-09 20:51] VITALS: BP 116/60; PULSE 89; RESP 18; TEMP 36.8; O2SAT 97
[2020-11-10 00:58] VITALS: BP 146/84; PULSE 82; RESP 18; TEMP 37.3; O2SAT 98
[2020-11-10 04:58] VITALS: BP 135/74; PULSE 87; RESP 18; TEMP 36.7; O2SAT 97
[2020-11-10] MEDS: vancomycin 750 MG in sodium chloride 0.9% 250 ML 250 MG IV (06:01)
[2020-11-10] MEDS: oxybutynin 5 mg Tablet PO ×2 (06:02→20:24)
[2020-11-10] MEDS: lactated ringers 1,000 ML 30 ML IV (06:04)
[2020-11-10 06:47] LABS: Alanine Aminotransferase 9 U/L (0-33); Albumin Level 3.7 g/dL (3.5-5.2); Alkaline Phosphatase 77 IU/L (35-105); Aspartate Amino Transferase 16 U/L (0-32); Blood Urea Nitrogen 15 mg/dL (6-20); Calcium 8.7 mg/dL (8.5-10.5); Carbon Dioxide 22 mmol/L (22-29); Chloride 97 mmol/L (98-107); Globulin 2.8 g/dL (1.3-4.6); Glomerular Filtration Rate 57.6 mL/min (90-130); Glucose 96 mg/dL (65-115); Osmolality Calculated 279 mOsm/kg (285-295); Sodium 134 mmol/L (136-145); Total Bilirubin 0.7 mg/dL (0.15-1.2); Total Protein 6.5 g/dL (6.6-8.7)
[2020-11-10 08:00] VITALS: BP 150/81; PULSE 80; RESP 17; TEMP 37.4; O2SAT 97
[2020-11-10] MEDS: famotidine 20 mg Tablet PO ×2 (08:22→17:00)
[2020-11-10] MEDS: levofloxacin-dextrose 5 % 500 MG/100 ML PREMIX 100 MG IV (08:22)
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
--- NOTE | 2020-11-10 10:44 | PC.SOCIAL ---
IMM update Pg. 2 of IMM updated and reviewed with patient who verbalized understanding. Copy provided.
--- NOTE | 2020-11-10 11:23 | P.PN_ITS ---
Subjective Subjective: Interval history: Patient denies shortness of breath or chest pain this morning. She is afebrile and reports that she had no episodes of diaphoresis. Her wound dressing was not changed this morning. Patient was seen by Dr. Jacobsen with recommendation to have brace by OT. Creatinine increased to 1.0 this morning. She makes urine and reports that usually at home she drinks large amount of fluids and coffee. Her albumin improved to 3.7. Urine growing Enterococcus faecalis although I am not sure it represents true infection. Her wound cultures are still pending. Vitals/I&O/Wt Last Vital Signs Temp 99.3 F 11/10/20 08:00 Pulse 80 11/10/20 08:00 Resp 17 11/10/20 08:00 BP 150/81 11/10/20 08:00 Pulse Ox 97 11/10/20 08:00 11/09/20 11/10/20 11/10/20 22:59 06:59 14:59 Intake Total 240 / 1022 987 / 2009 120 / 120 Output Total 2250 / 2250 1100 / 3350 400 / 400 Balance -2010 / -1228 -113 / -1341 -280 / -280 Physical Exam Narrative: EXAM NARRATIVE: Patient is alert and oriented x3. She is not in any distress. Her heart is regular and lungs are clear. Abdomen is soft. She is moving her upper extremities well except her hands. Both lower extremities are paralyzed. Data : 11/08/20 04:00 11/10/20 05:30 Micro: Microbiology 11/08/20 12:39 Gram Stain - Final Buttock Anaerobic Culture - Preliminary Wound Culture - Preliminary 11/08/20 12:39 Gram Stain - Final Buttock Tissue Culture - Preliminary 11/07/20 11:20 Urine Culture - Final Urine,Clean Catch Enterococcus faecalis A&P Assessment and plan (1) Abscess, gluteal, left: Status: Acute (2) Neurogenic bladder: Status: Acute (3) Quadriplegia: Status: Acute (4) Anemia: Appears chronic normocytic with some evidence of iron deficiency but normal vitamin B12 and folate level. Status: Acute (5) Constipation due to neurogenic bowel: Status: Acute (6) Acute kidney injury: Not present on admission. Appears to be prerenal. Status: Acute Additional A&P Information PLAN: Continue vancomycin and Levaquin as well as IV fluids. Discussed with pharmacist and we will check trough of vancomycin before next dose and adjust antibiotic dose accordingly. Awaiting wound culture results to transition patient to oral antibiotics. Encouraged oral intake including drinking fluids Will obtain CK level and CBC this morning and repeat labs in a.m. Attestations Medical Necessity Statement*: Patient with severe stage IV ulcer requiring surgical debridement and now developed acute kidney injury requiring close inpatient monitoring and treatment. 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
[2020-11-10 12:00] VITALS: BP 133/57; PULSE 76; RESP 18; TEMP 36.6; O2SAT 97
[2020-11-10 12:30] LABS: Creatine Phosphokinase 63 U/L (26-192)
--- NOTE | 2020-11-10 13:24 | PC.NURSE ---
Patient does not want healthcare team speaking to [facility], reported to chiqui nurse and in return reported to case management, also reported to Dr. Avila. Patient does not want this nurse to complete dressing change without Dr. Avila, physician notified and will be up today to change dressing with this nurse. patient made aware, verbalized that was okay. Patient denies problems with [facility] when asked by patient.
[2020-11-10 13:34] LABS: Basophils % 0.5 %; Eosinophils # 0.4 10^3/uL (0.0-0.8); Eosinophils % 6.4 %; Hematocrit 35.7 % (37.0-47.0); Hemoglobin 11.2 g/dL (11.5-15.3); Lymphocytes # 1.6 10^3/uL (0.8-4.8); Lymphocytes % 25.7 %; Mean Corpuscular HGB Conc 31.4 g/dL (30.0-36.0); Mean Corpuscular Hemoglobin 29.1 pg (28.0-34.0); Mean Corpuscular Volume 92.7 fL (81-99); Mean Platelet Volume 9.4 fL (7.4-10.4); Monocytes # 0.6 10^3/uL (0.2-0.9); Neutrophils # 3.55 10^3/uL (1.8-7.7); Neutrophils % 58.1 %; Nucleated Red Blood Cells % 0 %; Platelet Count 397 10^3/cmm (130-400); Red Blood Count 3.85 10^6/uL (4.1-5.3); Red Cell Distribution Width 12.1 % (12.1-15.1); White Blood Count 6.1 10^3/uL (4.0-10.0)
[2020-11-10 14:01] LABS: Vancomycin Trough 17.2 ug/mL (10-15)
[2020-11-10 15:48] VITALS: BP 118/55; PULSE 74; RESP 18; TEMP 36.9; O2SAT 97
--- NOTE | 2020-11-10 17:44 | PM.PN ---
Subjective Subjective: Interval history: No acute events overnight Vitals/I&O/Wt Last Vital Signs Temp 98.4 F 11/10/20 15:48 Pulse 74 11/10/20 15:48 Resp 18 11/10/20 15:48 BP 118/55 11/10/20 15:48 Pulse Ox 97 11/10/20 15:48 11/10/20 11/10/20 11/10/20 06:59 14:59 22:59 Intake Total / 2008 360 / 360 Output Total 1100 / 3350 400 / 400 Balance -113 / -1341 -40 / -40 Physical Exam Narrative: EXAM NARRATIVE: Patient is conscious alert oriented X3 BMI 20 Physical examination was done in the presence of patient's caring nurse Sarah Left gluteal abscess cavity is clean no residual purulent discharge and vessel loop in place. No surrounding cellulitis.packing was removed by me bedside and flushing of the wound was done with saline flushes followed by repacking with 1 inch Nu Gauze then ABD and paper tape. Data : 11/11/20 04:16 11/11/20 04:16 Micro: Microbiology 11/08/20 12:39 Gram Stain - Final Buttock Anaerobic Culture - Preliminary Wound Culture - Preliminary 11/08/20 12:39 Gram Stain - Final Buttock Tissue Culture - Preliminary Staphylococcus aureus 11/10/20 12:43 Blood Culture - Preliminary Blood SPECIMEN COLLECTED 11/10/20 12:37 Blood Culture - Preliminary Blood SPECIMEN COLLECTED A&P Assessment and plan (1) Abscess, gluteal, left: From surgical standpoint of view: Continue: 1-nutrition optimization 2-wound care in the form of packing the wound daily with 1 inch Nu Gauze wet-to-dry using saline, vessel loop flossing after irrigation of the wound with saline followed by ABDs 3-management of medical comorbidities 4-physical therapy consultation when needed 5-assurance and education 6-follow-up at the wound care center on weekly basis. 7-we will defer antimicrobial therapy to hospitalist service based on cultures and sensitivities 8-offloading and a doughnut should be used to avoid pressure on the ulcer cavity From surgical standpoint of view patient can be discharged and follow-up at the wound care center. Assurance and education All questions have been answered and all concerns have been addressed to patient's satisfaction. Status: Acute Attestations Medical Necessity Statement*: Inpatient Hospitalization for medical and surgical care Time Spent in Patient Care: (>than 50% of time spent in counselling and/or direct pt care on unit). 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
[2020-11-10 19:35] VITALS: BP 137/76; PULSE 73; RESP 18; TEMP 36.8; O2SAT 96
[2020-11-11] VITALS: BP 107/55; PULSE 83; RESP 20; TEMP 36.9; O2SAT 97
[2020-11-11 00:09] LABS: Vancomycin Trough 9.1 ug/mL (10-15)
[2020-11-11] MEDS: vancomycin 750 MG in sodium chloride 0.9% 250 ML 250 MG IV ×2 (01:00→11:11)
[2020-11-11 04:00] VITALS: BP 127/72; PULSE 75; RESP 20; TEMP 37; O2SAT 97
[2020-11-11 05:43] LABS: Basophils % 0.8 %; Eosinophils # 0.5 10^3/uL (0.0-0.8); Eosinophils % 10.7 %; Hematocrit 35.7 % (37.0-47.0); Lymphocytes # 1.8 10^3/uL (0.8-4.8); Lymphocytes % 37.3 %; Mean Corpuscular HGB Conc 30.8 g/dL (30.0-36.0); Mean Corpuscular Hemoglobin 28.9 pg (28.0-34.0); Mean Corpuscular Volume 93.9 fL (81-99); Mean Platelet Volume 9.4 fL (7.4-10.4); Monocytes # 0.5 10^3/uL (0.2-0.9); Monocytes % 9.6 %; Neutrophils # 2.01 10^3/uL (1.8-7.7); Neutrophils % 41.2 %; Nucleated Red Blood Cells % 0 %; Platelet Count 405 10^3/cmm (130-400); White Blood Count 4.9 10^3/uL (4.0-10.0)
[2020-11-11 06:08] LABS: Alanine Aminotransferase 10 U/L (0-33); Albumin Level 3.2 g/dL (3.5-5.2); Alkaline Phosphatase 100 IU/L (35-105); Anion Gap 11.9 (5-19); Aspartate Amino Transferase 9 U/L (0-32); Blood Urea Nitrogen 7 mg/dL (6-20); Calcium 8.8 mg/dL (8.5-10.5); Carbon Dioxide 27 mmol/L (22-29); Chloride 106 mmol/L (98-107); Globulin 3.1 g/dL (1.3-4.6); Glucose 103 mg/dL (65-115); Osmolality Calculated 290 mOsm/kg (285-295); Potassium 3.9 mmol/L (3.5-5.1); Sodium 141 mmol/L (136-145); Total Bilirubin 0.2 mg/dL (0.15-1.2); Total Protein 6.3 g/dL (6.6-8.7)
[2020-11-11] MEDS: lactated ringers 1,000 ML 30 ML IV (06:25)
[2020-11-11] MEDS: oxybutynin 5 mg Tablet PO (06:25)
--- NOTE | 2020-11-11 06:42 | PC.PT ---
Discussion with OT and physician, PT was ordered for TLSO; however, pt has adamantly refused brace. OT and nursing relates that pt is currently at her baseline physical ability. No PT eval required, at this time.
[2020-11-11 08:00] VITALS: BP 138/71; PULSE 82; RESP 17; TEMP 37.1; O2SAT 97
--- NOTE | 2020-11-11 09:04 | PM.PN ---
Subjective Subjective: Interval history: Patient is pleasant this morning. She got fitted for a brace yesterday should be bringing the brace back today. Vitals/I&O/Wt Last Vital Signs Temp 98.8 F 11/11/20 08:00 Pulse 82 11/11/20 08:00 Resp 17 11/11/20 08:00 BP 138/71 11/11/20 08:00 Pulse Ox 97 11/11/20 08:00 11/10/20 11/11/20 11/11/20 22:59 06:59 14:59 Intake Total 960 / 1320 1460.5 / 2780.5 420 / 420 Output Total 3000 / 3400 675 / 4075 Balance -2040 / -2080 785.5 / -1294.5 420 / 420 Physical Exam Narrative: EXAM NARRATIVE: Patient is sitting up in bed eating breakfast. Data : 11/11/20 04:16 11/11/20 04:16 Micro: Microbiology 11/08/20 12:39 Gram Stain - Final Buttock Anaerobic Culture - Preliminary Wound Culture - Preliminary 11/08/20 12:39 Gram Stain - Final Buttock Tissue Culture - Preliminary Staphylococcus aureus 11/10/20 12:43 Blood Culture - Preliminary Blood SPECIMEN COLLECTED 11/10/20 12:37 Blood Culture - Preliminary Blood SPECIMEN COLLECTED A&P Additional A&P Information Patient has quadriplegia and Attestations Medical Necessity Statement*: Patient is waiting for her brace. Coding Level of Care Code Acute Dog Day Care Attendant for [facility]
[2020-11-11] MEDS: famotidine 20 mg Tablet PO ×2 (10:08→17:08)
[2020-11-11] MEDS: levofloxacin-dextrose 5 % 500 MG/100 ML PREMIX 100 MG IV (10:08)
[2020-11-11 11:47] VITALS: BP 96/60; PULSE 80; RESP 18; TEMP 37.2; O2SAT 98
--- NOTE | 2020-11-11 15:34 | P.DS_ITS ---
Discharge Providers Date of Admission: 11/07/20 13:36 Date of Discharge: November 11, 2020 Attending Provider at Admission: Cesar Webster MD Attending Provider at Discharge: Cesar Webster MD Primary Care Provider: Ravi Mireles Diagnoses at Discharge Discharge Diagnosis (1) Abscess, gluteal, left: Status: Acute (2) Neurogenic bladder: Status: Acute (3) Quadriplegia: Status: Acute (4) Anemia: Status: Acute (5) Constipation due to neurogenic bowel: Status: Acute (6) Acute kidney injury: Status: Acute Reason for Visit Reason for Visit: High BP Hospital Course Hospital Course Patient presented with recurrent episodes of diaphoresis and found to have large stage IV gluteal pressure ulcer but no bone involvement. Patient was taken to the OR and Dr. Bell performed debridement procedure. Patient was treated with antibiotics and cultures currently growing staph aureus and Prevotella both susceptible to clindamycin. Patient will be transitioned to oral clindamycin 300 mg every 6 hours and I will continue this for 1 week. Patient will see Dr. Perez earliest possible at wound care clinic. Patient has aid at home and reports that her daughter Rin who is RN will help with wound care. 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 Patient noted that her body curves to the left whenever she sits up and likely the cause of her pressure ulcer. Patient was seen by Dr. Jacobsen, orthopedic surgeon with recommendation to try brace. We are currently waiting for brace fitting after which patient will be discharged home. This morning patient denies shortness of breath or chest pain. Denies abdominal pain. She requires 3 times weekly manual decompression of her bowel due to neurogenic bowel. She is on oxybutynin for neurogenic bladder and this will be continued as she becomes very symptomatic if she stops. Physical Exam Narrative: EXAM NARRATIVE: Patient is alert and oriented x3. Her lungs are clear and heart is regular. Abdomen is soft and nontender although patient has no feeling chest down. Discharge Data Data Completed and Pending: Completed Studies During Hospitalization Category Date Time Status CT abdomen pelvis w con* [id number] Stat Cat Scan 11/07/20 10:[address] angio LE BI [id number] Stat Cat Scan 11/07/20 12:04 Completed XR chest 1V madeline ble [id number] Stat Exams 11/07/20 10:38 Completed Pending at discharge Category Date Time Status Anaerobic Culture Routine Lab 11/08/20 12:39 Results Blood Culture Sta t Lab 11/07/20 17:10 Results Blood Culture Sta t Lab 11/10/20 12:43 Results Complete Blood Co unt w/Auto AM LABS Lab 11/12/20 04:00 Ordered Complete Blood Co unt w/Auto AM LABS Lab 11/13/20 04:00 Ordered Comprehensive Met abolic Panel AM LA BS Lab 11/12/20 04:00 Ordered Comprehensive Met abolic Panel AM LA BS Lab 11/13/20 04:00 Ordered Tissue Culture an d Gram Stain Routi ne Lab 11/08/20 12:39 Results Wound Culture and Gram Stain Routin e Lab 11/08/20 12:39 Results Labs from last 24 hours 11/11/20 11/11/20 11/10/20 04:16 04:16 22:55 WBC 4.9 RBC 3.80 L Hgb 11.0 L Hct 35.7 L MCV 93.9 MCH 28.9 MCHC 30.8 RDW 12.0 L Plt Count 405 H MPV 9.4 Neut % (Auto) 41.2 Lymph % (Auto) 37.3 [place] % (Auto) 9.6 Eos % (Auto) 10.7 Baso % (Auto) 0.8 Neut # (Auto) 2.01 Lymph # (Auto) 1.8 [place] # (Auto) 0.5 Eos # (Auto) 0.5 Baso # (Auto) 0.0 Nucleated RBC % (a uto) 0 Nucleated RBCs # 0.0 Sodium 141 Potassium 3.9 Chloride 106 Carbon Dioxide 27 Anion Gap 11.9 BUN 7 Creatinine 0.3 L GFR Calculation 231.0 H Glucose 103 Calculated Osmolal ity 290 Calcium 8.8 Total Bilirubin 0.2 AST 9 ALT 10 Alkaline Phosphata se 100 Total Protein 6.3 L Albumin 3.2 L Globulin 3.1 Vancomycin Trough 9.1 L Vitals: Last Vital Signs Temp 98.9 F 11/11/20 11:47 Pulse 80 11/11/20 11:47 Resp 18 11/11/20 11:47 BP 96/60 11/11/20 11:47 Pulse Ox 98 11/11/20 11:47 Discharge Plan Discharge Patient Disposition: Home Condition: Stable Prescriptions: New clindamycin HCl 300 mg capsule 300 mg PO Q6H 7 Days Qty: 28 RF: 0 Continued oxybutynin chloride 5 mg tablet 5 mg PO BID@, RF: 0 No Action (DME) Custome Back Brace See Rx Instructions .Route .MEDSUPPLY Qty: 1 RF: 0 Discharge Orders: Discharge Order (Routine); Ordered 11/11/20 Ordered By: Cesar Webster Referrals: lAex Jacobsen DO [Physician] - 2 weeks Cristian Bell MD [Physician] - 1-3 days (Return to wound care center first available) Ravi Mireles [Primary Care Provider] - 4-7 days Discharge Diet: Usual diet Discharge Activity: Increase activity as tolerated Activity Restrictions/Additional Instructions: Please call your doctor or present to emergency department if your condition worsens or you develop diarrhea, lightheadedness, fatigue or see blood in your stool or black stool. Please note that clindamycin could possibly cause antibiotic induced C. difficile diarrhea which will need to be further investigated if you develop one. Please follow-up with Dr. Perez at wound care clinic. Please continue with daily wound care as recommended by Dr. Perez. 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
[2020-11-11 16:00] VITALS: BP 100/58; PULSE 91; RESP 18; TEMP 37.1; O2SAT 96
--- NOTE | 2020-11-11 18:40 | PC.NURSE ---
this nurse assisted daughter rin who is an RN get the pt into her wheelchair and make sure pt has her items. Rin wheeled the pt down to go home. no questions or concerns from the pt at this time. iv was removed earlier in shift due to iv going bad and pt requesting it to be removed.
[2020-11-11 18:42] VITALS: BP 100/58; PULSE 91; RESP 18; TEMP 37.1; O2SAT 96
== END 2020-11-11 18:42 | disposition home or self-care (01) | DRG 579 ==
LOC: ER 13:13 → MEDSURG 17:14
PROVIDERS: Surgery; Admitting Provider Internal Medicine; Emergency Provider Family Medicine; PCP Family Medicine; Visit Provider Internal Medicine
PROC: 0K9P0ZX Drainage of Left Hip Muscle, Open Approach, Diagnostic (ICD-10-PCS; principal; 2020-11-08 10:05)
DX: L02.31 Cutaneous abscess of buttock (principal); L89.324 Pressure ulcer of left buttock, stage 4; G82.50 Quadriplegia, unspecified; K59.2 Neurogenic bowel, not elsewhere classified; N17.9 Acute kidney failure, unspecified; Z96.0 Presence of urogenital implants; M85.80 Other specified disorders of bone density and structure, unspecified site; D64.9 Anemia, unspecified; G90.4 Autonomic dysreflexia; K59.09 Other constipation; N31.9 Neuromuscular dysfunction of bladder, unspecified; Z87.442 Personal history of urinary calculi; A49.01 Methicillin susceptible Staphylococcus aureus infection, unspecified site
CPT/HCPCS: 12345; 36415; 36416; 36600; 71045; 73706; 74177; 80051; 80053; 80202; 81001; 82330; 82550; 82607; 82728; 82746; 82805; 82962; 83540; 83550; 83605; 83690; 83735; 84439; 84443; 84484; 85025; 87040; 87070; 87075; 87077; 87086; 87176; 87186; 87205; 87635; 93005; 96375; 97166; 97530; 99283; J1956; J2270; J2704; J3010; J3370; J7050; Q9967

== ENCOUNTER 2020-12-02 13:27 | Outpatient (CLI) | payer MEDICARE, MEDICAID, SELFPAY | END 2020-12-02 13:28 | disposition home or self-care (01) | LOC: WOUND 13:29 | PROVIDERS: PCP Family Medicine; Visit Provider Surgery | DX: L89.324 Pressure ulcer of left buttock, stage 4 (principal) | CPT/HCPCS: 11043; G0463 ==

== ENCOUNTER 2020-12-09 13:32 | Outpatient (CLI) | payer MEDICARE, MEDICAID, SELFPAY | END 2020-12-09 13:33 | disposition home or self-care (01) | LOC: WOUND 13:34 | PROVIDERS: PCP Family Medicine; Visit Provider Surgery | DX: I96 Gangrene, not elsewhere classified; L89.324 Pressure ulcer of left buttock, stage 4 | CPT/HCPCS: 11043 ==

== ENCOUNTER 2020-12-16 13:58 | Outpatient (CLI) | payer MEDICARE, MEDICAID, SELFPAY | END 2020-12-16 13:59 | disposition home or self-care (01) | LOC: WOUND 13:59 | PROVIDERS: PCP Family Medicine; Visit Provider Surgery | DX: L89.324 Pressure ulcer of left buttock, stage 4 (principal) | CPT/HCPCS: 11043 ==

== ENCOUNTER → 2020-12-22 11:47 | Outpatient (BNVA) | payer MEDICARE, MEDICAID, SELFPAY | PROVIDERS: PCP Family Medicine; Referring Provider Dermatology; Visit Provider Orthopaedic Surgery | DX: M46.44 Discitis, unspecified, thoracic region (principal) | CPT/HCPCS: 72114 ==

== ENCOUNTER 2020-12-26 14:11 | Outpatient (CLI) | payer MEDICARE, MEDICAID, SELFPAY ==
--- NOTE | 2020-12-26 14:30 | MR_ITS ---
WS: [id number] MRI THORACIC SPINE noncontrast. HISTORY: M46.44 - Discitis, unspecified, thoracic region COMPARISON: None available. TECHNIQUE: Multiplanar sequences are performed in sagittal and axial planes. Quality of this examination is significantly degraded by motion artifact. Patient was unable to remai n still secondary to muscle spasms. There is significant distortion of the lower cervical and upper t horacic spine by hardware. There is increased T2 signal in the T4 and T5 vertebral bodies. No fluid signal within the disc. There is significant abnormal signal involving the T11 and T12 vertebral bodies with loss of the disc space. There is marrow edema extending into the posterior elements, greatest on the RIGHT. Loss of t he disc space and loss of the normal cortex. Mild thoracic scoliosis. Although limited the signal wit hin the cord appears intact. No syrinx or enlargement. T1-2: Limited by hardware distortion in the cervical region. No stenosis. T2-3: Limited by motion. Suspect mild RIGHT foraminal stenosis. T3-4: Limited. No stenosis. T4-5: No stenosis. T5-6: Normal. T6-7: Normal. T7-8: Normal. T8-9: Normal. T9-10: Mild facet hypertrophy. Mild LEFT foraminal narrowing. T10-11: Bilateral facet arthritis and foraminal narrowing. T11-12: Facet arthritis and mild bilateral foraminal narrowing, RIGHT greater than LEFT. Central dis c bulging and osteophytosis without cord contact. MR/MR thoracic spin wo con* [id number] IMPRESSION: 1. This examination is significantly limited secondary to motion artifact. 2. Abnormal signal within the discs and vertebral bodies of T11 and T12 and to a lesser extent T4 and T5. Osteomyelitis and discitis are not excluded. Furthe r evaluation with IV contrast should be considered although may not be helpful if patient is unable to remain still.
== END 2020-12-26 14:12 | disposition home or self-care (01) ==
LOC: RADSHAW 14:17
PROVIDERS: PCP Family Medicine; Visit Provider Orthopaedic Surgery
DX: M46.44 Discitis, unspecified, thoracic region (principal)
CPT/HCPCS: 72146

== ENCOUNTER → 2021-01-02 11:02 | Day surgery (SDC) | payer MEDICARE, MEDICAID, SELFPAY ==
--- NOTE | 2021-01-02 11:15 | XR_ITS ---
WS: [id number] CHEST XRAY TECHNIQUE: Portable chest. CLINICAL INFORMATION: PICC PLACEMENT COMPARISON: November 07, 2020 FINDINGS: Right PICC line tip in the mid SVC. No pneumothorax. No other significant changes from previous. XR/XR chest 1V portable [id number] IMPRESSION: Right PICC line tip in the mid SVC
[2021-01-02 12:00] VITALS: BP 136/80; PULSE 71; RESP 18; TEMP 36.6; O2SAT 98
[2021-01-02] MEDS: vancomycin 1,000 MG in sodium chloride 0.9% 250 ML 250 MG IV (13:27)
== END ==
PROVIDERS: PCP Family Medicine; Visit Provider Family Medicine
DX: Z45.2 Encounter for adjustment and management of vascular access device (principal)
CPT/HCPCS: 36569; 71045; 96365; J3370; J7050

== ENCOUNTER 2021-01-04 10:46 | Outpatient (CLI) | payer MEDICARE, MEDICAID, SELFPAY ==
[2021-01-04 11:08] LABS: Basophils # 0.1 10^3/uL (0.0-0.1); Basophils % 0.8 %; Eosinophils # 0.2 10^3/uL (0.0-0.8); Eosinophils % 2.2 %; Hematocrit 30.9 % (37.0-47.0); Hemoglobin 9.6 g/dL (11.5-15.3); Lymphocytes # 1.6 10^3/uL (0.8-4.8); Lymphocytes % 20.7 %; Mean Corpuscular HGB Conc 31.1 g/dL (30.0-36.0); Mean Corpuscular Hemoglobin 26.8 pg (28.0-34.0); Mean Corpuscular Volume 86.3 fL (81-99); Mean Platelet Volume 8.8 fL (7.4-10.4); Monocytes # 0.9 10^3/uL (0.2-0.9); Monocytes % 11.2 %; Neutrophils % 64.8 %; Nucleated Red Blood Cells % 0 %; Platelet Count 518 10^3/cmm (130-400); Red Blood Count 3.58 10^6/uL (4.1-5.3); Red Cell Distribution Width 13.7 % (12.1-15.1); White Blood Count 7.6 10^3/uL (4.0-10.0)
[2021-01-04 11:22] LABS: Alanine Aminotransferase 16 U/L (0-33); Albumin Level 3.1 g/dL (3.5-5.2); Alkaline Phosphatase 117 IU/L (35-105); Anion Gap 13.5 (5-19); Aspartate Amino Transferase 16 U/L (0-32); Blood Urea Nitrogen 14 mg/dL (6-20); C Reactive Protein 46.1 mg/L (0.0-4.9); Calcium 8.6 mg/dL (8.5-10.5); Carbon Dioxide 26 mmol/L (22-29); Chloride 102 mmol/L (98-107); Globulin 3.6 g/dL (1.3-4.6); Glomerular Filtration Rate 368.8 mL/min (90-130); Glucose 100 mg/dL (65-115); Osmolality Calculated 285 mOsm/kg (285-295); Potassium 4.5 mmol/L (3.5-5.1); Sodium 137 mmol/L (136-145); Total Bilirubin 0.2 mg/dL (0.15-1.2); Total Protein 6.7 g/dL (6.6-8.7)
[2021-01-04 11:33] LABS: Vancomycin Trough 7.7 ug/mL (10-15)
== END 2021-01-04 10:47 | disposition home or self-care (01) ==
PROVIDERS: PCP Family Medicine; Visit Provider Family Medicine
DX: M46.24 Osteomyelitis of vertebra, thoracic region (principal)
CPT/HCPCS: 80053; 80202; 85025; 86140

== ENCOUNTER 2021-01-06 10:34 | Outpatient (RCR) | payer MEDICARE, MEDICAID, SELFPAY ==
[2021-01-06 11:09] LABS: Basophils # 0.1 10^3/uL (0.0-0.1); Basophils % 0.9 %; Eosinophils # 0.3 10^3/uL (0.0-0.8); Eosinophils % 3.7 %; Hematocrit 30.9 % (37.0-47.0); Hemoglobin 9.6 g/dL (11.5-15.3); Lymphocytes # 1.6 10^3/uL (0.8-4.8); Lymphocytes % 24.2 %; Mean Corpuscular HGB Conc 31.1 g/dL (30.0-36.0); Mean Platelet Volume 9.7 fL (7.4-10.4); Monocytes # 0.6 10^3/uL (0.2-0.9); Monocytes % 8.7 %; Neutrophils # 4.22 10^3/uL (1.8-7.7); Neutrophils % 62.2 %; Nucleated Red Blood Cells % 0 %; Platelet Count 373 10^3/cmm (130-400); Red Blood Count 3.55 10^6/uL (4.1-5.3); Red Cell Distribution Width 14.1 % (12.1-15.1); White Blood Count 6.8 10^3/uL (4.0-10.0)
[2021-01-06 11:31] LABS: Vancomycin Trough 9.4 ug/mL (10-15)
== END 2021-01-06 10:35 | disposition home or self-care (01) ==
LOC: LAB 10:34
PROVIDERS: PCP Family Medicine; Visit Provider Family Medicine
DX: M46.20 Osteomyelitis of vertebra, site unspecified (principal); Z45.2 Encounter for adjustment and management of vascular access device
CPT/HCPCS: 80202; 85025

== ENCOUNTER 2021-01-13 16:10 | Outpatient (CLI) | payer MEDICARE, MEDICAID, SELFPAY | END 2021-01-13 16:11 | disposition home or self-care (01) | PROVIDERS: PCP Family Medicine; Visit Provider Family Medicine | DX: L89.154 Pressure ulcer of sacral region, stage 4 (principal) | CPT/HCPCS: 85025 ==

== ENCOUNTER 2021-01-18 08:24 | Outpatient (CLI) | payer MEDICARE, MEDICAID, SELFPAY ==
[2021-01-18 08:59] LABS: Basophils # 0.1 10^3/uL (0.0-0.1); Basophils % 1.3 %; Eosinophils # 0.5 10^3/uL (0.0-0.8); Eosinophils % 7.5 %; Hematocrit 35.5 % (37.0-47.0); Hemoglobin 10.7 g/dL (11.5-15.3); Lymphocytes # 2.2 10^3/uL (0.8-4.8); Lymphocytes % 34.4 %; Mean Corpuscular HGB Conc 30.1 g/dL (30.0-36.0); Mean Corpuscular Hemoglobin 26.2 pg (28.0-34.0); Mean Platelet Volume 9.7 fL (7.4-10.4); Monocytes # 0.5 10^3/uL (0.2-0.9); Monocytes % 8.5 %; Neutrophils # 3.02 10^3/uL (1.8-7.7); Neutrophils % 48.1 %; Nucleated Red Blood Cells % 0 %; Platelet Count 397 10^3/cmm (130-400); Red Blood Count 4.08 10^6/uL (4.1-5.3); Red Cell Distribution Width 14.3 % (12.1-15.1); White Blood Count 6.3 10^3/uL (4.0-10.0)
[2021-01-18 09:14] LABS: Alanine Aminotransferase 16 U/L (0-33); Alkaline Phosphatase 154 IU/L (35-105); Anion Gap 14.9 (5-19); Aspartate Amino Transferase 15 U/L (0-32); Blood Urea Nitrogen 31 mg/dL (6-20); C Reactive Protein 37.3 mg/L (0.0-4.9); Calcium 9.4 mg/dL (8.5-10.5); Carbon Dioxide 23 mmol/L (22-29); Chloride 103 mmol/L (98-107); Globulin 3.3 g/dL (1.3-4.6); Glomerular Filtration Rate 128.1 mL/min (90-130); Glucose 95 mg/dL (65-115); Osmolality Calculated 290 mOsm/kg (285-295); Potassium 3.9 mmol/L (3.5-5.1); Sodium 137 mmol/L (136-145); Total Bilirubin 0.2 mg/dL (0.15-1.2); Total Protein 7.3 g/dL (6.6-8.7)
[2021-01-18 09:15] LABS: Vancomycin Trough 20.4 ug/mL (10-15)
== END 2021-01-18 08:25 | disposition home or self-care (01) ==
PROVIDERS: PCP Family Medicine; Visit Provider Family Medicine
DX: M86.9 Osteomyelitis, unspecified (principal)
CPT/HCPCS: 80053; 80202; 85025; 86140

== ENCOUNTER 2021-01-20 13:19 | Outpatient (CLI) | payer MEDICARE, MEDICAID, SELFPAY | END 2021-01-20 13:20 | disposition home or self-care (01) | LOC: WOUND 13:21 | PROVIDERS: PCP Family Medicine; Visit Provider Surgery | DX: I96 Gangrene, not elsewhere classified (principal); L89.324 Pressure ulcer of left buttock, stage 4 | CPT/HCPCS: 11044 ==

== ENCOUNTER 2021-01-23 16:22 | Outpatient (CLI) | payer MEDICARE, MEDICAID, SELFPAY ==
[2021-01-23 16:52] LABS: Basophils # 0.1 10^3/uL (0.0-0.1); Basophils % 1.1 %; Eosinophils # 0.5 10^3/uL (0.0-0.8); Eosinophils % 8.5 %; Hematocrit 32.4 % (37.0-47.0); Hemoglobin 9.8 g/dL (11.5-15.3); Lymphocytes # 1.7 10^3/uL (0.8-4.8); Lymphocytes % 30.9 %; Mean Corpuscular HGB Conc 30.2 g/dL (30.0-36.0); Mean Corpuscular Hemoglobin 26.1 pg (28.0-34.0); Mean Corpuscular Volume 86.2 fL (81-99); Mean Platelet Volume 9.9 fL (7.4-10.4); Monocytes # 0.5 10^3/uL (0.2-0.9); Monocytes % 8.7 %; Neutrophils # 2.73 10^3/uL (1.8-7.7); Neutrophils % 50.4 %; Nucleated Red Blood Cells % 0 %; Platelet Count 354 10^3/cmm (130-400); Red Blood Count 3.76 10^6/uL (4.1-5.3); Red Cell Distribution Width 14.2 % (12.1-15.1); White Blood Count 5.4 10^3/uL (4.0-10.0)
[2021-01-23 17:18] LABS: Alanine Aminotransferase 16 U/L (0-33); Albumin Level 3.6 g/dL (3.5-5.2); Alkaline Phosphatase 125 IU/L (35-105); Anion Gap 14.6 (5-19); Aspartate Amino Transferase 16 U/L (0-32); Blood Urea Nitrogen 17 mg/dL (6-20); C Reactive Protein 37.8 mg/L (0.0-4.9); Carbon Dioxide 23 mmol/L (22-29); Chloride 103 mmol/L (98-107); Globulin 3.3 g/dL (1.3-4.6); Glomerular Filtration Rate 165.7 mL/min (90-130); Glucose 77 mg/dL (65-115); Osmolality Calculated 282 mOsm/kg (285-295); Potassium 4.6 mmol/L (3.5-5.1); Sodium 136 mmol/L (136-145); Total Bilirubin 0.2 mg/dL (0.15-1.2); Total Protein 6.9 g/dL (6.6-8.7)
[2021-01-23 18:10] LABS: Vancomycin Trough 10.6 ug/mL (10-15)
== END 2021-01-23 16:23 | disposition home or self-care (01) ==
PROVIDERS: PCP Family Medicine; Visit Provider Family Medicine
DX: L89.154 Pressure ulcer of sacral region, stage 4 (principal)
CPT/HCPCS: 80053; 80202; 85025; 86140

== ENCOUNTER → 2021-01-24 15:00 | Outpatient (BNVA) | payer MEDICARE, MEDICAID, SELFPAY | PROVIDERS: PCP Family Medicine; Referring Provider Orthopaedic Surgery; Visit Provider Student in an Organized Health Care Education/Training Program | DX: L89.324 Pressure ulcer of left buttock, stage 4 (principal) | CPT/HCPCS: 87070; 87077; 87184 ==

== ENCOUNTER 2021-01-27 13:11 | Outpatient (CLI) | payer MEDICARE, MEDICAID, SELFPAY | END 2021-01-27 13:12 | disposition home or self-care (01) | LOC: WOUND 13:12 | PROVIDERS: PCP Family Medicine; Visit Provider Surgery | DX: I96 Gangrene, not elsewhere classified (principal); L89.324 Pressure ulcer of left buttock, stage 4 | CPT/HCPCS: 11044 ==

== ENCOUNTER 2021-02-01 11:12 | Outpatient (CLI) | payer MEDICARE, MEDICAID, SELFPAY ==
[2021-02-01 12:06] LABS: Basophils # 0.1 10^3/uL (0.0-0.1); Basophils % 1.1 %; Eosinophils # 0.3 10^3/uL (0.0-0.8); Eosinophils % 6.2 %; Hematocrit 32.6 % (37.0-47.0); Hemoglobin 9.8 g/dL (11.5-15.3); Lymphocytes # 1.6 10^3/uL (0.8-4.8); Mean Corpuscular HGB Conc 30.1 g/dL (30.0-36.0); Mean Corpuscular Hemoglobin 25.9 pg (28.0-34.0); Mean Platelet Volume 9.9 fL (7.4-10.4); Monocytes # 0.4 10^3/uL (0.2-0.9); Monocytes % 7.9 %; Neutrophils # 2.21 10^3/uL (1.8-7.7); Neutrophils % 48.8 %; Nucleated Red Blood Cells % 0 %; Platelet Count 346 10^3/cmm (130-400); Red Blood Count 3.79 10^6/uL (4.1-5.3); White Blood Count 4.5 10^3/uL (4.0-10.0)
[2021-02-01 12:54] LABS: Alanine Aminotransferase 24 U/L (0-33); Albumin Level 3.7 g/dL (3.5-5.2); Alkaline Phosphatase 133 IU/L (35-105); Blood Urea Nitrogen 29 mg/dL (6-20); Calcium 8.8 mg/dL (8.5-10.5); Carbon Dioxide 27 mmol/L (22-29); Chloride 101 mmol/L (98-107); Globulin 3.2 g/dL (1.3-4.6); Glomerular Filtration Rate 165.7 mL/min (90-130); Glucose 85 mg/dL (65-115); Osmolality Calculated 291 mOsm/kg (285-295); Sodium 138 mmol/L (136-145); Total Bilirubin 0.2 mg/dL (0.15-1.2); Total Protein 6.9 g/dL (6.6-8.7)
[2021-02-01 12:58] LABS: Anion Gap 14.3 (5-19); Potassium 4.3 mmol/L (3.5-5.1)
[2021-02-01 12:59] LABS: Aspartate Amino Transferase 22 U/L (0-32)
[2021-02-01 13:11] LABS: Erythrocyte Sedimentation Rate 35 mm/hr (0-15)
== END 2021-02-01 11:13 | disposition home or self-care (01) ==
PROVIDERS: PCP Family Medicine; Visit Provider Student in an Organized Health Care Education/Training Program
DX: M46.24 Osteomyelitis of vertebra, thoracic region (principal)
CPT/HCPCS: 80053; 85025; 85651

== ENCOUNTER 2021-02-03 13:10 | Outpatient (CLI) | payer MEDICARE, MEDICAID, SELFPAY | END 2021-02-03 13:11 | disposition home or self-care (01) | LOC: WOUND 13:11 | PROVIDERS: PCP Family Medicine; Visit Provider Surgery | DX: L89.324 Pressure ulcer of left buttock, stage 4 (principal) | CPT/HCPCS: 11044 ==

== ENCOUNTER 2021-02-08 17:51 | Outpatient (CLI) | payer MEDICARE, MEDICAID, SELFPAY ==
[2021-02-08 18:17] LABS: Basophils # 0.1 10^3/uL (0.0-0.1); Basophils % 0.9 %; Eosinophils # 0.3 10^3/uL (0.0-0.8); Eosinophils % 4.4 %; Hematocrit 33.1 % (37.0-47.0); Hemoglobin 10.1 g/dL (11.5-15.3); Lymphocytes # 1.7 10^3/uL (0.8-4.8); Lymphocytes % 21.5 %; Mean Corpuscular HGB Conc 30.5 g/dL (30.0-36.0); Mean Corpuscular Hemoglobin 25.8 pg (28.0-34.0); Mean Corpuscular Volume 84.4 fL (81-99); Mean Platelet Volume 10.1 fL (7.4-10.4); Monocytes # 0.6 10^3/uL (0.2-0.9); Neutrophils # 5.07 10^3/uL (1.8-7.7); Neutrophils % 65.1 %; Nucleated Red Blood Cells % 0 %; Platelet Count 331 10^3/cmm (130-400); Red Blood Count 3.92 10^6/uL (4.1-5.3); Red Cell Distribution Width 14.4 % (12.1-15.1); White Blood Count 7.8 10^3/uL (4.0-10.0)
[2021-02-08 18:54] LABS: Alanine Aminotransferase 20 U/L (0-33); Albumin Level 3.7 g/dL (3.5-5.2); Alkaline Phosphatase 141 IU/L (35-105); Anion Gap 16.8 (5-19); Aspartate Amino Transferase 14 U/L (0-32); Blood Urea Nitrogen 38 mg/dL (6-20); Calcium 9.1 mg/dL (8.5-10.5); Carbon Dioxide 22 mmol/L (22-29); Chloride 103 mmol/L (98-107); Globulin 3.1 g/dL (1.3-4.6); Glucose 127 mg/dL (65-115); Osmolality Calculated 297 mOsm/kg (285-295); Potassium 3.8 mmol/L (3.5-5.1); Sodium 138 mmol/L (136-145); Total Bilirubin 0.2 mg/dL (0.15-1.2); Total Protein 6.8 g/dL (6.6-8.7)
[2021-02-08 20:40] LABS: Erythrocyte Sedimentation Rate 38 mm/hr (0-15)
== END 2021-02-08 17:52 | disposition home or self-care (01) ==
PROVIDERS: PCP Family Medicine; Visit Provider Family Medicine
DX: M46.24 Osteomyelitis of vertebra, thoracic region (principal)
CPT/HCPCS: 80053; 85025; 85651

== ENCOUNTER 2021-02-10 14:30 | Outpatient (CLI) | payer MEDICARE, MEDICAID, SELFPAY | END 2021-02-10 14:31 | disposition home or self-care (01) | LOC: WOUND 14:31 | PROVIDERS: PCP Family Medicine; Visit Provider Nurse Practitioner Family | DX: L89.324 Pressure ulcer of left buttock, stage 4 (principal) | CPT/HCPCS: 11042; 97605 ==

== ENCOUNTER 2021-02-14 11:49 | Outpatient (CLI) | payer MEDICARE, MEDICAID, SELFPAY ==
[2021-02-14 12:06] LABS: Basophils # 0.1 10^3/uL (0.0-0.1); Basophils % 1.4 %; Eosinophils # 0.4 10^3/uL (0.0-0.8); Hematocrit 38.5 % (37.0-47.0); Hemoglobin 11.6 g/dL (11.5-15.3); Lymphocytes # 2.6 10^3/uL (0.8-4.8); Lymphocytes % 41.2 %; Mean Corpuscular HGB Conc 30.1 g/dL (30.0-36.0); Mean Corpuscular Hemoglobin 25.3 pg (28.0-34.0); Mean Corpuscular Volume 84.1 fL (81-99); Monocytes # 0.5 10^3/uL (0.2-0.9); Monocytes % 7.8 %; Neutrophils # 2.65 10^3/uL (1.8-7.7); Neutrophils % 42.4 %; Nucleated Red Blood Cells % 0 %; Platelet Count 333 10^3/cmm (130-400); Red Blood Count 4.58 10^6/uL (4.1-5.3); Red Cell Distribution Width 14.6 % (12.1-15.1); White Blood Count 6.3 10^3/uL (4.0-10.0)
[2021-02-14 12:41] LABS: Alanine Aminotransferase 23 U/L (0-33); Alkaline Phosphatase 167 IU/L (35-105); Aspartate Amino Transferase 21 U/L (0-32); Blood Urea Nitrogen 32 mg/dL (6-20); Calcium 9.5 mg/dL (8.5-10.5); Carbon Dioxide 24 mmol/L (22-29); Chloride 103 mmol/L (98-107); Globulin 3.4 g/dL (1.3-4.6); Glomerular Filtration Rate 368.8 mL/min (90-130); Glucose 88 mg/dL (65-115); Osmolality Calculated 290 mOsm/kg (285-295); Sodium 137 mmol/L (136-145); Total Bilirubin 0.2 mg/dL (0.15-1.2); Total Protein 7.4 g/dL (6.6-8.7)
[2021-02-14 12:42] LABS: Anion Gap 15.1 (5-19); Potassium 5.1 mmol/L (3.5-5.1)
[2021-02-14 13:02] LABS: Erythrocyte Sedimentation Rate 38 mm/hr (0-15)
[2021-02-14 17:01] LABS: Creatine Phosphokinase 50 U/L (26-192)
== END 2021-02-14 11:50 | disposition home or self-care (01) ==
LOC: LAB 11:51
PROVIDERS: PCP Family Medicine; Visit Provider Family Medicine
DX: M86.9 Osteomyelitis, unspecified (principal); G82.50 Quadriplegia, unspecified
CPT/HCPCS: 80053; 82550; 85025; 85651

== ENCOUNTER 2021-02-17 09:45 | Outpatient (CLI) | payer MEDICARE, MEDICAID, SELFPAY | END 2021-02-17 09:46 | disposition home or self-care (01) | LOC: WOUND 09:46 | PROVIDERS: PCP Family Medicine; Visit Provider Surgery | DX: L89.324 Pressure ulcer of left buttock, stage 4 (principal) | CPT/HCPCS: 11044; 97605 ==

== ENCOUNTER 2021-02-20 16:42 | Outpatient (CLI) | payer MEDICARE, MEDICAID, SELFPAY ==
[2021-02-20 17:03] LABS: Basophils # 0.1 10^3/uL (0.0-0.1); Basophils % 0.9 %; Eosinophils # 0.5 10^3/uL (0.0-0.8); Eosinophils % 4.5 %; Hematocrit 37.8 % (37.0-47.0); Hemoglobin 11.2 g/dL (11.5-15.3); Lymphocytes # 2.7 10^3/uL (0.8-4.8); Lymphocytes % 26.2 %; Mean Corpuscular HGB Conc 29.6 g/dL (30.0-36.0); Mean Corpuscular Hemoglobin 25.2 pg (28.0-34.0); Mean Corpuscular Volume 84.9 fL (81-99); Mean Platelet Volume 10.9 fL (7.4-10.4); Monocytes # 0.7 10^3/uL (0.2-0.9); Monocytes % 6.5 %; Neutrophils # 6.41 10^3/uL (1.8-7.7); Neutrophils % 61.7 %; Nucleated Red Blood Cells % 0 %; Platelet Count 350 10^3/cmm (130-400); Red Blood Count 4.45 10^6/uL (4.1-5.3); Red Cell Distribution Width 14.9 % (12.1-15.1); White Blood Count 10.4 10^3/uL (4.0-10.0)
[2021-02-20 17:28] LABS: Albumin Level 4.1 g/dL (3.5-5.2); Alkaline Phosphatase 158 IU/L (35-105); Blood Urea Nitrogen 33 mg/dL (6-20); Carbon Dioxide 25 mmol/L (22-29); Chloride 96 mmol/L (98-107); Globulin 3.5 g/dL (1.3-4.6); Glomerular Filtration Rate 368.8 mL/min (90-130); Glucose 63 mg/dL (65-115); Osmolality Calculated 289 mOsm/kg (285-295); Sodium 137 mmol/L (136-145); Total Bilirubin 0.2 mg/dL (0.15-1.2); Total Protein 7.6 g/dL (6.6-8.7)
[2021-02-20 17:32] LABS: Alanine Aminotransferase 24 U/L (0-33); Anion Gap 20.9 (5-19); Aspartate Amino Transferase 32 U/L (0-32); Potassium 4.9 mmol/L (3.5-5.1)
[2021-02-20 17:44] LABS: Erythrocyte Sedimentation Rate 51 mm/hr (0-15)
[2021-02-21 14:47] LABS: Creatine Phosphokinase 71 U/L (26-192)
== END 2021-02-20 16:43 | disposition home or self-care (01) ==
LOC: LAB 16:46
PROVIDERS: PCP Family Medicine; Visit Provider Family Medicine
DX: L89.154 Pressure ulcer of sacral region, stage 4 (principal)
CPT/HCPCS: 80053; 82550; 85025; 85651

== ENCOUNTER 2021-02-24 09:36 | Outpatient (CLI) | payer MEDICARE, MEDICAID, SELFPAY | END 2021-02-24 09:37 | disposition home or self-care (01) | LOC: WOUND 09:37 | PROVIDERS: PCP Family Medicine; Visit Provider Surgery | DX: L89.324 Pressure ulcer of left buttock, stage 4 (principal) | CPT/HCPCS: 11044; 97606 ==

== ENCOUNTER 2021-02-27 15:41 | Outpatient (CLI) | payer MEDICARE, MEDICAID, SELFPAY ==
[2021-02-27 16:16] LABS: Basophils # 0.1 10^3/uL (0.0-0.1); Basophils % 0.8 %; Eosinophils # 0.3 10^3/uL (0.0-0.8); Eosinophils % 3.2 %; Hematocrit 40.4 % (37.0-47.0); Lymphocytes # 3.3 10^3/uL (0.8-4.8); Lymphocytes % 38.7 %; Mean Corpuscular HGB Conc 29.7 g/dL (30.0-36.0); Mean Corpuscular Hemoglobin 25.6 pg (28.0-34.0); Mean Corpuscular Volume 86.1 fL (81-99); Mean Platelet Volume 10.4 fL (7.4-10.4); Monocytes # 0.8 10^3/uL (0.2-0.9); Monocytes % 9.5 %; Neutrophils # 4.05 10^3/uL (1.8-7.7); Neutrophils % 47.6 %; Nucleated Red Blood Cells % 0 %; Platelet Count 355 10^3/cmm (130-400); Red Blood Count 4.69 10^6/uL (4.1-5.3); Red Cell Distribution Width 15.4 % (12.1-15.1); White Blood Count 8.5 10^3/uL (4.0-10.0)
[2021-02-27 16:57] LABS: Alanine Aminotransferase 23 U/L (0-33); Albumin Level 4.3 g/dL (3.5-5.2); Alkaline Phosphatase 176 IU/L (35-105); Aspartate Amino Transferase 17 U/L (0-32); Blood Urea Nitrogen 14 mg/dL (6-20); Calcium 9.5 mg/dL (8.5-10.5); Carbon Dioxide 24 mmol/L (22-29); Chloride 100 mmol/L (98-107); Globulin 3.5 g/dL (1.3-4.6); Glomerular Filtration Rate 368.8 mL/min (90-130); Glucose 76 mg/dL (65-115); Osmolality Calculated 285 mOsm/kg (285-295); Sodium 138 mmol/L (136-145); Total Bilirubin 0.3 mg/dL (0.15-1.2); Total Protein 7.8 g/dL (6.6-8.7)
[2021-02-27 17:36] LABS: Erythrocyte Sedimentation Rate 48 mm/hr (0-15)
[2021-03-01 09:21] LABS: Creatine Phosphokinase 59 U/L (26-192)
== END 2021-02-27 15:42 | disposition home or self-care (01) ==
LOC: LAB 15:54
PROVIDERS: PCP Family Medicine; Visit Provider Student in an Organized Health Care Education/Training Program
DX: L89.154 Pressure ulcer of sacral region, stage 4 (principal)
CPT/HCPCS: 80053; 82550; 85025; 85651

== ENCOUNTER 2021-02-28 12:57 | Outpatient (CLI) | payer MEDICARE, MEDICAID, SELFPAY ==
--- NOTE | 2021-02-28 12:59 | MRR_ITS ---
PROCEDURE INFORMATION: Exam: MR Pelvis Without and With Contrast, Sacrum Exam date and time: 02/28/2021 1:24 PM Age: 55 years old Clinical indication: Condition or disease; Other: Stage 4 pressure ulcer left buttocks; Acute osteomyelitis pel TECHNIQUE: Imaging protocol: Magnetic resonance images of the pelvis without and with intravenous contrast. Exam focused on the sacrum. Contrast material: MULTIHANCE; Contrast volume: 10 ml; Contrast route: INTRAVENOUS (IV); COMPARISON: CT abdomen pelvis w con* [id number] 11/07/2020 10:50 AM FINDINGS: Tubes, catheters and devices: Suprapubic catheter within decompressed bladder. Bones/joints: Abnormal reactive bone marrow signal changes and abnormal bone marrow enhancement of the left ischium and the left posterior acetabular wall. Large D left posterior ischial decubitus ulcer extends to the posterior margin of the bone. Likely bone erosive changes of the left posterior ischium. Hip joint alignments are intact. No significant joint effusion. No abnormal bone marrow signal in the proximal femurs or abnormal femur bone marrow enhancement. Surgical hardware within right proximal femur. Soft tissues: Reactive intramuscular edema and enhancement of the surrounding muscles. MR/MR pelvis wo/w con [id number] IMPRESSION: 1. Osteomyelitis in the left posterior ischium and left posterior acetabulum. Surrounding myositis. 2. Left posterior ischial sacral decubitus ulcer larger than prior.
[2021-02-28] MEDS: gadobenate dimeglumine 20 mL vial IV (14:14)
== END 2021-02-28 12:58 | disposition home or self-care (01) ==
LOC: RADSHAW 12:57
PROVIDERS: PCP Family Medicine; Visit Provider Surgery
DX: L89.324 Pressure ulcer of left buttock, stage 4 (principal); M86.18 Other acute osteomyelitis, other site
CPT/HCPCS: 72197; A9577

== ENCOUNTER 2021-03-03 09:42 | Outpatient (CLI) | payer MEDICARE, MEDICAID, SELFPAY | END 2021-03-03 09:43 | disposition home or self-care (01) | LOC: WOUND 09:45 | PROVIDERS: PCP Family Medicine; Visit Provider Surgery | DX: L89.324 Pressure ulcer of left buttock, stage 4 (principal) | CPT/HCPCS: 11044 ==

== ENCOUNTER 2021-03-03 12:12 | Outpatient (CLI) | payer MEDICARE, MEDICAID, SELFPAY ==
--- NOTE | 2021-03-03 12:30 | MR_ITS ---
WS: [id number] MRI THORACIC SPINE with and without contrast. HISTORY: FOLLOW UP DISCITIS/OSTEOMYELITIS COMPARISON: Noncontrast MRI of thoracic spine 12/26/2020. TECHNIQUE: Multiplanar sequences are performed in sagittal and axial planes. Postcontrast sequences a lso performed. Extensive post surgical hardware in the cervical spine causing distortion. Increased signal within th e endplates of T4 and T5. No fluid like signal within the disc. Abnormal signal throughout the majority of the T11 and T12 vertebral bodies with disc bulging. No flu id in the disc. The marrow signal extends into the posterior elements bilaterally. There is mild disc bulging. On the postcontrast imaging there is mild persistent diffuse enhancement within T11 and T12 . No epidural abscess. There is a very small amount of increased enhancement within the disc which is probably discitis. No enhancement within the T4 and T5 vertebral body endplates. T1-2: Normal. T2-3: Normal. T3-4: Mild RIGHT foraminal narrowing. T4-5: Mild annular disc bulging without significant stenosis. T5-6: Mild annular disc bulging. T6-7: Normal. T7-8: Normal. T8-9: Normal. T9-10: Mild facet arthritis. No stenosis. T10-11: Mild annular disc bulging. Mild LEFT foraminal narrowing. T11-12: Mild annular disc bulging. Severe stenosis involving the RIGHT foramen due to combination of disc and osteophyte and facet disease. Mild stenosis of the LEFT foramen. There is paravertebral enhancement along the RIGHT lateral T11 vertebral body with extension into the T11-12 foramen. Also at the T4-5 level there is soft tissue enhancement along the RIGHT lateral T5 vertebral body. MR/MR thoracic spine wo/w [id number] IMPRESSION: 1. Persistent but probably not progressive osteomyelitis at T11-12. No epidura l abscess. 2. Severe RIGHT foraminal stenosis at T11-12 due to combination of disc, facet disease and osteophytes. 3. RIGHT lateral paravertebral enhancement without abscess at T11-12 and also RIGHT lateral of the T5 vertebral body. 4. Increased marrow edema within the adjacent endplates of T4 and T5 but there is no enhancement to suggest osteomyelitis or discitis.
[2021-03-03] MEDS: gadobenate dimeglumine 20 mL vial IV (13:40)
== END 2021-03-03 12:13 | disposition home or self-care (01) ==
LOC: RADSHAW 12:15
PROVIDERS: PCP Family Medicine; Visit Provider Student in an Organized Health Care Education/Training Program
DX: M46.40 Discitis, unspecified, site unspecified (principal); M46.24 Osteomyelitis of vertebra, thoracic region; M48.04 Spinal stenosis, thoracic region; M25.78 Osteophyte, vertebrae; R60.0 Localized edema
CPT/HCPCS: 72157; A9577

== ENCOUNTER 2021-03-06 11:53 | Outpatient (CLI) | payer MEDICARE, MEDICAID, SELFPAY ==
[2021-03-06 12:25] LABS: Basophils # 0.1 10^3/uL (0.0-0.1); Eosinophils # 0.3 10^3/uL (0.0-0.8); Eosinophils % 3.5 %; Hematocrit 34.5 % (37.0-47.0); Hemoglobin 10.2 g/dL (11.5-15.3); Lymphocytes # 1.6 10^3/uL (0.8-4.8); Lymphocytes % 22.8 %; Mean Corpuscular HGB Conc 29.6 g/dL (30.0-36.0); Mean Corpuscular Hemoglobin 25.2 pg (28.0-34.0); Mean Corpuscular Volume 85.4 fL (81-99); Mean Platelet Volume 10.1 fL (7.4-10.4); Monocytes # 0.6 10^3/uL (0.2-0.9); Monocytes % 7.7 %; Neutrophils # 4.59 10^3/uL (1.8-7.7); Neutrophils % 64.7 %; Nucleated Red Blood Cells % 0 %; Platelet Count 337 10^3/cmm (130-400); Red Blood Count 4.04 10^6/uL (4.1-5.3); Red Cell Distribution Width 14.8 % (12.1-15.1); White Blood Count 7.1 10^3/uL (4.0-10.0)
[2021-03-06 12:50] LABS: Alanine Aminotransferase 20 U/L (0-33); Albumin Level 3.5 g/dL (3.5-5.2); Chloride 101 mmol/L (98-107); Creatine Phosphokinase 60 U/L (26-192); Potassium 4.4 mmol/L (3.5-5.1); Sodium 136 mmol/L (136-145)
[2021-03-06 13:12] LABS: Anion Gap 15.4 (5-19); Aspartate Amino Transferase 22 U/L (0-32); Blood Urea Nitrogen 32 mg/dL (6-20); Calcium 8.6 mg/dL (8.5-10.5); Carbon Dioxide 24 mmol/L (22-29); Glomerular Filtration Rate 367.4 mL/min (90-130); Glucose 99 mg/dL (65-115); Osmolality Calculated 289 mOsm/kg (285-295); Total Bilirubin 0.2 mg/dL (0.15-1.2); Total Protein 6.5 g/dL (6.6-8.7)
[2021-03-06 13:17] LABS: Alkaline Phosphatase 133 IU/L (35-105)
[2021-03-06 13:24] LABS: Erythrocyte Sedimentation Rate 45 mm/hr (0-15)
== END 2021-03-06 11:54 | disposition home or self-care (01) ==
LOC: LAB 11:58
PROVIDERS: PCP Family Medicine; Visit Provider Student in an Organized Health Care Education/Training Program
DX: L89.154 Pressure ulcer of sacral region, stage 4 (principal)
CPT/HCPCS: 80053; 82550; 85025; 85651

== ENCOUNTER 2021-03-10 09:25 | Outpatient (CLI) | payer MEDICARE, MEDICAID, SELFPAY | END 2021-03-10 09:26 | disposition home or self-care (01) | LOC: WOUND 09:26 | PROVIDERS: PCP Family Medicine; Visit Provider Surgery | DX: L89.324 Pressure ulcer of left buttock, stage 4 (principal) | CPT/HCPCS: 11044 ==

== ENCOUNTER 2021-03-13 11:23 | Outpatient (CLI) | payer MEDICARE, MEDICAID, SELFPAY ==
[2021-03-13 12:07] LABS: Basophils # 0.1 10^3/uL (0.0-0.1); Basophils % 0.9 %; Eosinophils # 0.4 10^3/uL (0.0-0.8); Hematocrit 36.5 % (37.0-47.0); Lymphocytes # 2.2 10^3/uL (0.8-4.8); Lymphocytes % 26.7 %; Mean Corpuscular HGB Conc 30.1 g/dL (30.0-36.0); Mean Corpuscular Hemoglobin 25.1 pg (28.0-34.0); Mean Corpuscular Volume 83.3 fL (81-99); Mean Platelet Volume 10.3 fL (7.4-10.4); Monocytes # 0.5 10^3/uL (0.2-0.9); Monocytes % 5.9 %; Neutrophils # 4.97 10^3/uL (1.8-7.7); Neutrophils % 61.3 %; Nucleated Red Blood Cells % 0 %; Platelet Count 346 10^3/cmm (130-400); Red Blood Count 4.38 10^6/uL (4.1-5.3); Red Cell Distribution Width 15.2 % (12.1-15.1); White Blood Count 8.1 10^3/uL (4.0-10.0)
[2021-03-13 12:27] LABS: Alanine Aminotransferase 22 U/L (0-33); Albumin Level 3.8 g/dL (3.5-5.2); Alkaline Phosphatase 139 IU/L (35-105); Blood Urea Nitrogen 29 mg/dL (6-20); Calcium 8.9 mg/dL (8.5-10.5); Carbon Dioxide 26 mmol/L (22-29); Chloride 103 mmol/L (98-107); Creatine Phosphokinase 54 U/L (26-192); Globulin 2.8 g/dL (1.3-4.6); Glomerular Filtration Rate 367.4 mL/min (90-130); Glucose 83 mg/dL (65-115); Osmolality Calculated 295 mOsm/kg (285-295); Sodium 140 mmol/L (136-145); Total Bilirubin 0.2 mg/dL (0.15-1.2); Total Protein 6.6 g/dL (6.6-8.7)
[2021-03-13 12:30] LABS: Anion Gap 16.1 (5-19); Aspartate Amino Transferase 33 U/L (0-32); Potassium 5.1 mmol/L (3.5-5.1)
[2021-03-13 13:04] LABS: Erythrocyte Sedimentation Rate 26 mm/hr (0-15)
== END 2021-03-13 11:24 | disposition home or self-care (01) ==
PROVIDERS: PCP Family Medicine; Visit Provider Family Medicine
DX: L89.154 Pressure ulcer of sacral region, stage 4 (principal)
CPT/HCPCS: 80053; 82550; 85025; 85651

== ENCOUNTER 2021-03-17 10:07 | Outpatient (CLI) | payer MEDICARE, MEDICAID, SELFPAY | END 2021-03-17 10:08 | disposition home or self-care (01) | LOC: WOUND 10:08 | PROVIDERS: PCP Family Medicine; Visit Provider Surgery | DX: L89.324 Pressure ulcer of left buttock, stage 4 (principal) | CPT/HCPCS: 11044 ==

== ENCOUNTER 2021-03-22 15:12 | Outpatient (CLI) | payer MEDICARE, MEDICAID, SELFPAY ==
[2021-03-20 15:19] LABS: Basophils # 0.1 10^3/uL (0.0-0.1); Basophils % 0.7 %; Eosinophils # 0.4 10^3/uL (0.0-0.8); Eosinophils % 4.4 %; Hematocrit 36.6 % (37.0-47.0); Hemoglobin 10.9 g/dL (11.5-15.3); Lymphocytes # 2.1 10^3/uL (0.8-4.8); Lymphocytes % 22.6 %; Mean Corpuscular HGB Conc 29.8 g/dL (30.0-36.0); Mean Corpuscular Hemoglobin 25.7 pg (28.0-34.0); Mean Corpuscular Volume 86.3 fL (81-99); Mean Platelet Volume 10.6 fL (7.4-10.4); Monocytes # 0.9 10^3/uL (0.2-0.9); Monocytes % 9.2 %; Neutrophils # 5.89 10^3/uL (1.8-7.7); Neutrophils % 62.8 %; Nucleated Red Blood Cells % 0 %; Platelet Count 289 10^3/cmm (130-400); Red Blood Count 4.24 10^6/uL (4.1-5.3); Red Cell Distribution Width 16.3 % (12.1-15.1); White Blood Count 9.4 10^3/uL (4.0-10.0)
[2021-03-20 16:05] LABS: Alanine Aminotransferase 27 U/L (0-33); Albumin Level 3.8 g/dL (3.5-5.2); Alkaline Phosphatase 140 IU/L (35-105); Blood Urea Nitrogen 30 mg/dL (6-20); Calcium 8.6 mg/dL (8.5-10.5); Carbon Dioxide 23 mmol/L (22-29); Chloride 99 mmol/L (98-107); Globulin 2.8 g/dL (1.3-4.6); Glomerular Filtration Rate 367.4 mL/min (90-130); Glucose 72 mg/dL (65-115); Osmolality Calculated 283 mOsm/kg (285-295); Sodium 134 mmol/L (136-145); Total Bilirubin 0.3 mg/dL (0.15-1.2); Total Protein 6.6 g/dL (6.6-8.7)
[2021-03-20 16:13] LABS: Anion Gap 16.6 (5-19); Potassium 4.6 mmol/L (3.5-5.1)
[2021-03-20 16:14] LABS: Aspartate Amino Transferase 27 U/L (0-32)
[2021-03-22 15:41] LABS: Basophils # 0.1 10^3/uL (0.0-0.1); Basophils % 1.6 %; Eosinophils # 0.4 10^3/uL (0.0-0.8); Eosinophils % 9.5 %; Hematocrit 34.2 % (37.0-47.0); Hemoglobin 10.1 g/dL (11.5-15.3); Lymphocytes # 1.7 10^3/uL (0.8-4.8); Lymphocytes % 37.9 %; Mean Corpuscular HGB Conc 29.5 g/dL (30.0-36.0); Mean Corpuscular Hemoglobin 25.4 pg (28.0-34.0); Mean Corpuscular Volume 85.9 fL (81-99); Mean Platelet Volume 10.8 fL (7.4-10.4); Monocytes # 0.5 10^3/uL (0.2-0.9); Monocytes % 10.7 %; Neutrophils # 1.77 10^3/uL (1.8-7.7); Neutrophils % 40.1 %; Nucleated Red Blood Cells % 0 %; Platelet Count 248 10^3/cmm (130-400); Red Blood Count 3.98 10^6/uL (4.1-5.3); Red Cell Distribution Width 16.4 % (12.1-15.1); White Blood Count 4.4 10^3/uL (4.0-10.0)
[2021-03-22 16:17] LABS: Alanine Aminotransferase 23 U/L (0-33); Albumin Level 3.6 g/dL (3.5-5.2); Alkaline Phosphatase 131 IU/L (35-105); Aspartate Amino Transferase 21 U/L (0-32); Blood Urea Nitrogen 21 mg/dL (6-20); Calcium 8.3 mg/dL (8.5-10.5); Carbon Dioxide 26 mmol/L (22-29); Chloride 101 mmol/L (98-107); Creatine Phosphokinase 47 U/L (26-192); Globulin 2.4 g/dL (1.3-4.6); Glomerular Filtration Rate 367.4 mL/min (90-130); Glucose 73 mg/dL (65-115); Osmolality Calculated 282 mOsm/kg (285-295); Sodium 135 mmol/L (136-145); Total Bilirubin 0.3 mg/dL (0.15-1.2)
[2021-03-22 17:39] LABS: Erythrocyte Sedimentation Rate 24 mm/hr (0-15)
== END 2021-03-22 15:13 | disposition home or self-care (01) ==
LOC: LAB 15:15
PROVIDERS: PCP Family Medicine; Visit Provider Surgery
DX: M86.9 Osteomyelitis, unspecified (principal)
CPT/HCPCS: 80053; 82550; 85025; 85651

== ENCOUNTER 2021-03-23 15:40 | Outpatient (CLI) | payer MEDICARE, MEDICAID, SELFPAY ==
[2021-03-23 16:41] LABS: Prealbumin 18.8 mg/dL (20-40)
== END 2021-03-23 15:41 | disposition home or self-care (01) ==
LOC: LAB 15:48
PROVIDERS: PCP Family Medicine; Visit Provider Surgery
DX: L89.154 Pressure ulcer of sacral region, stage 4 (principal)
CPT/HCPCS: 84134

== ENCOUNTER 2021-03-24 10:21 | Outpatient (CLI) | payer MEDICARE, MEDICAID, SELFPAY | END 2021-03-24 10:22 | disposition home or self-care (01) | LOC: WOUND 10:22 | PROVIDERS: PCP Family Medicine; Visit Provider Nurse Practitioner Family | DX: L89.324 Pressure ulcer of left buttock, stage 4 (principal) | CPT/HCPCS: 11042 ==

== ENCOUNTER 2021-03-27 11:41 | Outpatient (CLI) | payer MEDICARE, MEDICAID, SELFPAY ==
[2021-03-27 12:19] LABS: Basophils # 0.1 10^3/uL (0.0-0.1); Basophils % 1.2 %; Eosinophils # 0.5 10^3/uL (0.0-0.8); Eosinophils % 8.7 %; Hematocrit 38.7 % (37.0-47.0); Hemoglobin 11.6 g/dL (11.5-15.3); Lymphocytes # 1.8 10^3/uL (0.8-4.8); Lymphocytes % 31.3 %; Mean Corpuscular Hemoglobin 25.4 pg (28.0-34.0); Mean Corpuscular Volume 84.7 fL (81-99); Mean Platelet Volume 10.7 fL (7.4-10.4); Monocytes # 0.5 10^3/uL (0.2-0.9); Monocytes % 7.8 %; Neutrophils # 2.93 10^3/uL (1.8-7.7); Neutrophils % 50.8 %; Nucleated Red Blood Cells % 0 %; Platelet Count 280 10^3/cmm (130-400); Red Blood Count 4.57 10^6/uL (4.1-5.3); Red Cell Distribution Width 16.5 % (12.1-15.1); White Blood Count 5.8 10^3/uL (4.0-10.0)
[2021-03-27 12:27] LABS: Alanine Aminotransferase 20 U/L (0-33); Albumin Level 4.2 g/dL (3.5-5.2); Alkaline Phosphatase 148 IU/L (35-105); Anion Gap 16.5 (5-19); Aspartate Amino Transferase 17 U/L (0-32); Blood Urea Nitrogen 30 mg/dL (6-20); Calcium 8.8 mg/dL (8.5-10.5); Carbon Dioxide 23 mmol/L (22-29); Chloride 103 mmol/L (98-107); Globulin 2.7 g/dL (1.3-4.6); Glomerular Filtration Rate 367.4 mL/min (90-130); Glucose 89 mg/dL (65-115); Osmolality Calculated 292 mOsm/kg (285-295); Potassium 4.5 mmol/L (3.5-5.1); Sodium 138 mmol/L (136-145); Total Bilirubin 0.3 mg/dL (0.15-1.2); Total Protein 6.9 g/dL (6.6-8.7)
== END 2021-03-27 11:42 | disposition home or self-care (01) ==
LOC: LAB 11:42
PROVIDERS: PCP Family Medicine; Visit Provider Student in an Organized Health Care Education/Training Program
DX: Z45.2 Encounter for adjustment and management of vascular access device (principal)
CPT/HCPCS: 80053; 85025

== ENCOUNTER 2021-03-29 15:35 | Outpatient (CLI) | payer MEDICARE, MEDICAID, SELFPAY ==
[2021-03-29 16:07] LABS: Basophils # 0.1 10^3/uL (0.0-0.1); Basophils % 1.5 %; Eosinophils # 0.5 10^3/uL (0.0-0.8); Eosinophils % 11.5 %; Hematocrit 37.3 % (37.0-47.0); Lymphocytes # 1.4 10^3/uL (0.8-4.8); Lymphocytes % 35.3 %; Mean Corpuscular HGB Conc 29.5 g/dL (30.0-36.0); Mean Corpuscular Hemoglobin 25.5 pg (28.0-34.0); Mean Corpuscular Volume 86.3 fL (81-99); Monocytes # 0.4 10^3/uL (0.2-0.9); Monocytes % 10.5 %; Neutrophils # 1.63 10^3/uL (1.8-7.7); Neutrophils % 40.9 %; Nucleated Red Blood Cells % 0 %; Platelet Count 276 10^3/cmm (130-400); Red Blood Count 4.32 10^6/uL (4.1-5.3); Red Cell Distribution Width 16.8 % (12.1-15.1)
[2021-03-29 16:25] LABS: Alanine Aminotransferase 20 U/L (0-33); Albumin Level 3.8 g/dL (3.5-5.2); Alkaline Phosphatase 128 IU/L (35-105); Blood Urea Nitrogen 20 mg/dL (6-20); Calcium 8.8 mg/dL (8.5-10.5); Carbon Dioxide 27 mmol/L (22-29); Chloride 104 mmol/L (98-107); Creatine Phosphokinase 58 U/L (26-192); Globulin 2.7 g/dL (1.3-4.6); Glomerular Filtration Rate 367.4 mL/min (90-130); Glucose 71 mg/dL (65-115); Osmolality Calculated 291 mOsm/kg (285-295); Sodium 140 mmol/L (136-145); Total Bilirubin 0.3 mg/dL (0.15-1.2); Total Protein 6.5 g/dL (6.6-8.7)
[2021-03-29 16:30] LABS: Anion Gap 13.7 (5-19); Aspartate Amino Transferase 21 U/L (0-32); Potassium 4.7 mmol/L (3.5-5.1)
[2021-03-29 16:39] LABS: Prealbumin 19.9 mg/dL (20-40)
[2021-03-29 17:33] LABS: Erythrocyte Sedimentation Rate 23 mm/hr (0-15)
== END 2021-03-29 15:36 | disposition home or self-care (01) ==
PROVIDERS: PCP Family Medicine; Visit Provider Surgery
DX: L89.154 Pressure ulcer of sacral region, stage 4 (principal)
CPT/HCPCS: 80053; 82550; 84134; 85025; 85651

== ENCOUNTER 2021-03-31 10:00 | Outpatient (CLI) | payer MEDICARE, MEDICAID, SELFPAY | END 2021-03-31 10:01 | disposition home or self-care (01) | LOC: WOUND 10:03 | PROVIDERS: PCP Family Medicine; Visit Provider Surgery | DX: L97.324 Non-pressure chronic ulcer of left ankle with necrosis of bone (principal) | CPT/HCPCS: 11043 ==

== ENCOUNTER 2021-04-03 14:56 | Outpatient (CLI) | payer MEDICARE, MEDICAID, SELFPAY ==
[2021-04-03 16:28] LABS: Basophils # 0.1 10^3/uL (0.0-0.1); Basophils % 1.2 %; Eosinophils # 0.5 10^3/uL (0.0-0.8); Eosinophils % 11.9 %; Hematocrit 35.6 % (37.0-47.0); Hemoglobin 10.6 g/dL (11.5-15.3); Lymphocytes # 1.9 10^3/uL (0.8-4.8); Lymphocytes % 46.3 %; Mean Corpuscular HGB Conc 29.8 g/dL (30.0-36.0); Mean Corpuscular Hemoglobin 25.8 pg (28.0-34.0); Mean Corpuscular Volume 86.6 fL (81-99); Monocytes # 0.4 10^3/uL (0.2-0.9); Monocytes % 9.9 %; Neutrophils # 1.24 10^3/uL (1.8-7.7); Neutrophils % 30.7 %; Nucleated Red Blood Cells % 0 %; Platelet Count 257 10^3/cmm (130-400); Red Blood Count 4.11 10^6/uL (4.1-5.3); Red Cell Distribution Width 16.3 % (12.1-15.1)
[2021-04-03 16:46] LABS: Alanine Aminotransferase 21 U/L (0-33); Albumin Level 3.6 g/dL (3.5-5.2); Alkaline Phosphatase 127 IU/L (35-105); Aspartate Amino Transferase 20 U/L (0-32); Blood Urea Nitrogen 25 mg/dL (6-20); Calcium 8.5 mg/dL (8.5-10.5); Carbon Dioxide 26 mmol/L (22-29); Chloride 101 mmol/L (98-107); Globulin 2.1 g/dL (1.3-4.6); Glomerular Filtration Rate 230.1 mL/min (90-130); Glucose 58 mg/dL (65-115); Osmolality Calculated 288 mOsm/kg (285-295); Sodium 138 mmol/L (136-145); Total Bilirubin 0.3 mg/dL (0.15-1.2); Total Protein 5.7 g/dL (6.6-8.7)
[2021-04-03 16:47] LABS: Prealbumin 16.5 mg/dL (20-40)
== END 2021-04-03 14:57 | disposition home or self-care (01) ==
LOC: LAB 16:04
PROVIDERS: PCP Family Medicine; Visit Provider Student in an Organized Health Care Education/Training Program
DX: Z45.2 Encounter for adjustment and management of vascular access device (principal)
CPT/HCPCS: 80053; 84134; 85025

== ENCOUNTER 2021-04-07 09:48 | Outpatient (CLI) | payer MEDICARE, MEDICAID, SELFPAY | END 2021-04-07 09:49 | disposition home or self-care (01) | LOC: WOUND 09:52 | PROVIDERS: PCP Family Medicine; Visit Provider Nurse Practitioner Family | DX: L89.324 Pressure ulcer of left buttock, stage 4 (principal) | CPT/HCPCS: G0463 ==

== ENCOUNTER 2021-04-10 12:41 | Outpatient (CLI) | payer MEDICARE, MEDICAID, SELFPAY ==
[2021-04-10 13:36] LABS: Basophils # 0.1 10^3/uL (0.0-0.1); Basophils % 0.7 %; Eosinophils # 0.4 10^3/uL (0.0-0.8); Eosinophils % 5.5 %; Hematocrit 36.4 % (37.0-47.0); Hemoglobin 10.8 g/dL (11.5-15.3); Lymphocytes # 1.8 10^3/uL (0.8-4.8); Lymphocytes % 23.6 %; Mean Corpuscular HGB Conc 29.7 g/dL (30.0-36.0); Mean Corpuscular Hemoglobin 25.5 pg (28.0-34.0); Mean Corpuscular Volume 85.8 fL (81-99); Mean Platelet Volume 11.2 fL (7.4-10.4); Monocytes # 0.7 10^3/uL (0.2-0.9); Neutrophils # 4.69 10^3/uL (1.8-7.7); Neutrophils % 60.9 %; Nucleated Red Blood Cells % 0 %; Platelet Count 287 10^3/cmm (130-400); Red Blood Count 4.24 10^6/uL (4.1-5.3); Red Cell Distribution Width 15.9 % (12.1-15.1); White Blood Count 7.7 10^3/uL (4.0-10.0)
[2021-04-10 13:55] LABS: Alanine Aminotransferase 21 U/L (0-33); Albumin Level 3.7 g/dL (3.5-5.2); Alkaline Phosphatase 127 IU/L (35-105); Blood Urea Nitrogen 23 mg/dL (6-20); Calcium 8.6 mg/dL (8.5-10.5); Carbon Dioxide 24 mmol/L (22-29); Chloride 104 mmol/L (98-107); Creatine Phosphokinase 49 U/L (26-192); Glomerular Filtration Rate 367.4 mL/min (90-130); Glucose 76 mg/dL (65-115); Osmolality Calculated 288 mOsm/kg (285-295); Sodium 138 mmol/L (136-145); Total Bilirubin 0.2 mg/dL (0.15-1.2); Total Protein 6.7 g/dL (6.6-8.7)
[2021-04-10 13:57] LABS: Prealbumin 16.6 mg/dL (20-40)
[2021-04-10 14:13] LABS: Anion Gap 14.9 (5-19); Potassium 4.9 mmol/L (3.5-5.1)
[2021-04-10 14:14] LABS: Aspartate Amino Transferase 22 U/L (0-32)
[2021-04-10 14:57] LABS: Erythrocyte Sedimentation Rate 26 mm/hr (0-15)
== END 2021-04-10 12:42 | disposition home or self-care (01) ==
LOC: LAB 12:42
PROVIDERS: PCP Family Medicine; Visit Provider Student in an Organized Health Care Education/Training Program
DX: Z45.2 Encounter for adjustment and management of vascular access device (principal)
CPT/HCPCS: 80053; 82550; 84134; 85025; 85651

== ENCOUNTER 2021-04-21 10:47 | Outpatient (CLI) | payer MEDICARE, MEDICAID, SELFPAY | END 2021-04-21 10:48 | disposition home or self-care (01) | LOC: WOUND 10:50 | PROVIDERS: PCP Family Medicine; Visit Provider Surgery | DX: L89.324 Pressure ulcer of left buttock, stage 4 (principal) | CPT/HCPCS: 11044; 87070; 87075; 87186; 87205 ==

== ENCOUNTER 2021-04-28 10:11 | Outpatient (CLI) | payer MEDICARE, MEDICAID, SELFPAY | END 2021-04-28 10:12 | disposition home or self-care (01) | LOC: WOUND 10:12 | PROVIDERS: PCP Family Medicine; Visit Provider Surgery | DX: L89.324 Pressure ulcer of left buttock, stage 4 (principal) | CPT/HCPCS: G0463 ==

== ENCOUNTER 2021-05-01 06:00 | Outpatient (RCR) | payer MEDICARE, MEDICAID, SELFPAY | END 2021-05-24 23:59 | disposition home or self-care (01) | LOC: SOT 06:00 | PROVIDERS: PCP Family Medicine; Referring Provider Surgery; Visit Provider Surgery | DX: L89.324 Pressure ulcer of left buttock, stage 4 (principal) | CPT/HCPCS: 97167; 97530 ==

== ENCOUNTER 2021-05-19 09:41 | Outpatient (CLI) | payer MEDICARE, MEDICAID, SELFPAY | END 2021-05-19 09:42 | disposition home or self-care (01) | LOC: WOUND 09:43 | PROVIDERS: PCP Family Medicine; Visit Provider Surgery | DX: L89.324 Pressure ulcer of left buttock, stage 4 (principal) | CPT/HCPCS: 11044 ==

== ENCOUNTER 2021-06-02 09:43 | Outpatient (CLI) | payer MEDICARE, MEDICAID, SELFPAY | END 2021-06-02 09:44 | disposition home or self-care (01) | LOC: WOUND 09:45 | PROVIDERS: PCP Family Medicine; Visit Provider Thoracic Surgery (Cardiothoracic Vascular Surgery) | DX: L89.624 Pressure ulcer of left heel, stage 4 (principal) | CPT/HCPCS: 11042 ==

== ENCOUNTER 2021-06-16 09:50 | Outpatient (CLI) | payer MEDICARE, MEDICAID, SELFPAY | END 2021-06-16 09:51 | disposition home or self-care (01) | LOC: WOUND 09:52 | PROVIDERS: PCP Family Medicine; Visit Provider Surgery | DX: L89.324 Pressure ulcer of left buttock, stage 4 (principal) | CPT/HCPCS: 11043 ==

== ENCOUNTER 2021-06-23 12:57 | Outpatient (CLI) | payer MEDICARE, MEDICAID, SELFPAY | END 2021-06-23 12:58 | disposition home or self-care (01) | LOC: WOUND 12:58 | PROVIDERS: PCP Family Medicine; Visit Provider Surgery | DX: L89.894 Pressure ulcer of other site, stage 4 (principal) | CPT/HCPCS: 11044 ==

== ENCOUNTER 2021-07-07 12:57 | Outpatient (CLI) | payer MEDICARE, MEDICAID, SELFPAY | END 2021-07-07 12:58 | disposition home or self-care (01) | LOC: WOUND 12:58 | PROVIDERS: PCP Family Medicine; Visit Provider Surgery | DX: L89.324 Pressure ulcer of left buttock, stage 4 (principal) | CPT/HCPCS: 11043 ==

== ENCOUNTER 2021-07-21 12:56 | Outpatient (CLI) | payer MEDICARE, MEDICAID, SELFPAY | END 2021-07-21 12:57 | disposition home or self-care (01) | LOC: WOUND 12:57 | PROVIDERS: PCP Family Medicine; Visit Provider Surgery | DX: L89.324 Pressure ulcer of left buttock, stage 4 (principal) | CPT/HCPCS: 11044; 11047 ==

== ENCOUNTER 2021-08-04 13:01 | Outpatient (CLI) | payer MEDICARE, MEDICAID, SELFPAY | END 2021-08-04 13:02 | disposition home or self-care (01) | LOC: WOUND 13:05 | PROVIDERS: PCP Family Medicine; Visit Provider Surgery | DX: L89.324 Pressure ulcer of left buttock, stage 4 (principal) | CPT/HCPCS: 11043 ==

== ENCOUNTER 2021-08-11 13:02 | Outpatient (CLI) | payer MEDICARE, MEDICAID, SELFPAY | END 2021-08-11 13:03 | disposition home or self-care (01) | LOC: WOUND 13:06 | PROVIDERS: PCP Family Medicine; Visit Provider Surgery | DX: L89.324 Pressure ulcer of left buttock, stage 4 (principal) | CPT/HCPCS: 11043 ==

== ENCOUNTER 2021-08-25 09:40 | Outpatient (CLI) | payer MEDICARE, MEDICAID, SELFPAY | END 2021-08-25 09:41 | disposition home or self-care (01) | LOC: WOUND 09:41 | PROVIDERS: PCP Family Medicine; Visit Provider Nurse Practitioner Family | DX: L89.324 Pressure ulcer of left buttock, stage 4 (principal) | CPT/HCPCS: 11042; A6197 ==

== ENCOUNTER 2021-09-08 09:39 | Outpatient (CLI) | payer MEDICARE, MEDICAID, SELFPAY | END 2021-09-08 09:40 | disposition home or self-care (01) | LOC: WOUND 09:40 | PROVIDERS: PCP Family Medicine; Visit Provider Nurse Practitioner Family | DX: L89.324 Pressure ulcer of left buttock, stage 4 (principal) | CPT/HCPCS: 11042; A6197 ==

== ENCOUNTER 2021-09-22 09:44 | Outpatient (CLI) | payer MEDICARE, MEDICAID, SELFPAY | END 2021-09-22 09:45 | disposition home or self-care (01) | LOC: WOUND 09:48 | PROVIDERS: PCP Family Medicine; Visit Provider Surgery | DX: L89.324 Pressure ulcer of left buttock, stage 4 (principal) | CPT/HCPCS: 11044 ==

== ENCOUNTER 2021-09-29 10:03 | Outpatient (CLI) | payer MEDICARE, MEDICAID, SELFPAY | END 2021-09-29 10:04 | disposition home or self-care (01) | LOC: WOUND 10:05 | PROVIDERS: PCP Family Medicine; Visit Provider Surgery | DX: L89.324 Pressure ulcer of left buttock, stage 4 (principal) | CPT/HCPCS: 11044; A6197 ==

== ENCOUNTER 2021-10-06 09:33 | Outpatient (CLI) | payer MEDICARE, MEDICAID, SELFPAY | END 2021-10-06 09:34 | disposition home or self-care (01) | LOC: WOUND 09:34 | PROVIDERS: PCP Family Medicine; Visit Provider Nurse Practitioner Family | DX: L89.324 Pressure ulcer of left buttock, stage 4 (principal) | CPT/HCPCS: 11042; A6250 ==

== ENCOUNTER 2021-10-13 09:32 | Outpatient (CLI) | payer MEDICARE, MEDICAID, SELFPAY | END 2021-10-13 09:33 | disposition home or self-care (01) | LOC: WOUND 09:33 | PROVIDERS: PCP Family Medicine; Visit Provider Surgery | DX: L89.324 Pressure ulcer of left buttock, stage 4 (principal) | CPT/HCPCS: 11044; A6197 ==

== ENCOUNTER 2021-10-27 09:43 | Outpatient (CLI) | payer MEDICARE, MEDICAID, SELFPAY | END 2021-10-27 09:44 | disposition home or self-care (01) | LOC: WOUND 09:44 | PROVIDERS: PCP Family Medicine; Visit Provider Surgery | DX: L89.324 Pressure ulcer of left buttock, stage 4 (principal) | CPT/HCPCS: 11043; A6197 ==

== ENCOUNTER 2021-11-03 09:04 | Outpatient (CLI) | payer MEDICARE, MEDICAID, SELFPAY | END 2021-11-03 09:05 | disposition home or self-care (01) | LOC: WOUND 09:06 | PROVIDERS: PCP Family Medicine; Visit Provider Nurse Practitioner Family | DX: L89.324 Pressure ulcer of left buttock, stage 4 (principal) | CPT/HCPCS: 11042; A6197 ==

== ENCOUNTER 2021-11-10 09:18 | Outpatient (CLI) | payer MEDICARE, MEDICAID, SELFPAY | END 2021-11-10 09:19 | disposition home or self-care (01) | LOC: WOUND 09:19 | PROVIDERS: PCP Family Medicine; Visit Provider Surgery | DX: I96 Gangrene, not elsewhere classified (principal); L89.324 Pressure ulcer of left buttock, stage 4 | CPT/HCPCS: 11044; A6197 ==

== ENCOUNTER 2021-11-23 09:30 | Outpatient (CLI) | payer MEDICARE, MEDICAID, SELFPAY | END 2021-11-23 09:31 | disposition home or self-care (01) | LOC: WOUND 09:31 | PROVIDERS: PCP Family Medicine; Visit Provider Nurse Practitioner Family | DX: I96 Gangrene, not elsewhere classified (principal); L89.324 Pressure ulcer of left buttock, stage 4 | CPT/HCPCS: 11042 ==

== ENCOUNTER 2021-12-01 09:19 | Outpatient (CLI) | payer MEDICARE, MEDICAID, SELFPAY | END 2021-12-01 09:20 | disposition home or self-care (01) | LOC: WOUND 09:21 | PROVIDERS: PCP Family Medicine; Visit Provider Surgery | DX: I96 Gangrene, not elsewhere classified (principal); L89.324 Pressure ulcer of left buttock, stage 4 | CPT/HCPCS: 11044; A6197 ==

== ENCOUNTER 2021-12-15 09:23 | Outpatient (CLI) | payer MEDICARE, MEDICAID, SELFPAY | END 2021-12-15 09:24 | disposition home or self-care (01) | LOC: WOUND 09:25 | PROVIDERS: PCP Family Medicine; Visit Provider Nurse Practitioner Family | DX: I96 Gangrene, not elsewhere classified (principal); L89.324 Pressure ulcer of left buttock, stage 4 | CPT/HCPCS: 11042; A6197; A6212 ==

== ENCOUNTER 2022-01-05 08:47 | Outpatient (CLI) | payer MEDICARE, MEDICAID, SELFPAY | END 2022-01-05 08:48 | disposition home or self-care (01) | LOC: WOUND 08:48 | PROVIDERS: PCP Family Medicine; Visit Provider Surgery | DX: I96 Gangrene, not elsewhere classified (principal); L89.324 Pressure ulcer of left buttock, stage 4 | CPT/HCPCS: 11044; A6197 ==

== ENCOUNTER 2022-02-02 08:51 | Outpatient (CLI) | payer MEDICARE, MEDICAID, SELFPAY | END 2022-02-02 08:52 | disposition home or self-care (01) | LOC: WOUND 08:52 | PROVIDERS: PCP Family Medicine; Visit Provider Surgery | DX: L89.324 Pressure ulcer of left buttock, stage 4 (principal) | CPT/HCPCS: 11043; A6197 ==

== ENCOUNTER → 2022-02-16 08:55 | Outpatient (BNVA) | payer MEDICARE, MEDICAID, SELFPAY | PROVIDERS: PCP Family Medicine; Visit Provider Nurse Practitioner Family | DX: L89.324 Pressure ulcer of left buttock, stage 4 (principal); I96 Gangrene, not elsewhere classified | CPT/HCPCS: 11042 ==

== ENCOUNTER → 2022-03-02 12:51 | Outpatient (BNVA) | payer MEDICARE, MEDICAID, SELFPAY | PROVIDERS: PCP Family Medicine; Visit Provider Surgery | DX: L89.324 Pressure ulcer of left buttock, stage 4 (principal); I96 Gangrene, not elsewhere classified | CPT/HCPCS: 11043; A6197 ==

== ENCOUNTER → 2022-03-23 08:57 | Outpatient (BNVA) | payer MEDICARE, MEDICAID, SELFPAY | PROVIDERS: PCP Family Medicine; Visit Provider Nurse Practitioner Family | DX: I96 Gangrene, not elsewhere classified (principal); L89.314 Pressure ulcer of right buttock, stage 4 | CPT/HCPCS: 11042 ==

== ENCOUNTER → 2022-04-06 08:58 | Outpatient (BNVA) | payer MEDICARE, MEDICAID, SELFPAY | PROVIDERS: PCP Family Medicine; Visit Provider Emergency Medicine | DX: I96 Gangrene, not elsewhere classified (principal); L89.314 Pressure ulcer of right buttock, stage 4 | CPT/HCPCS: 11042; A6219 ==

== ENCOUNTER → 2022-04-20 09:45 | Outpatient (BNVA) | payer MEDICARE, MEDICAID, SELFPAY | PROVIDERS: PCP Family Medicine; Visit Provider Surgery | DX: I96 Gangrene, not elsewhere classified (principal); L89.324 Pressure ulcer of left buttock, stage 4 | CPT/HCPCS: 11043; A6197 ==

== ENCOUNTER → 2022-05-04 09:32 | Outpatient (BNVA) | payer MEDICARE, MEDICAID, SELFPAY | PROVIDERS: PCP Family Medicine; Visit Provider Nurse Practitioner Family | DX: I96 Gangrene, not elsewhere classified (principal); L89.324 Pressure ulcer of left buttock, stage 4 | CPT/HCPCS: 11042 ==

== ENCOUNTER → 2022-05-18 10:39 | Outpatient (BNVA) | payer MEDICARE, MEDICAID, SELFPAY | PROVIDERS: PCP Family Medicine; Visit Provider Nurse Practitioner Family | DX: L89.324 Pressure ulcer of left buttock, stage 4 (principal); I96 Gangrene, not elsewhere classified | CPT/HCPCS: 11042 ==

== ENCOUNTER → 2022-06-01 09:54 | Outpatient (BNVA) | payer MEDICARE, MEDICAID, SELFPAY | PROVIDERS: PCP Family Medicine; Visit Provider Surgery | DX: I96 Gangrene, not elsewhere classified (principal); L89.324 Pressure ulcer of left buttock, stage 4 | CPT/HCPCS: 11044 ==

== ENCOUNTER → 2022-06-15 09:48 | Outpatient (BNVA) | payer MEDICARE, MEDICAID, SELFPAY | PROVIDERS: PCP Family Medicine; Visit Provider Nurse Practitioner Family | DX: I96 Gangrene, not elsewhere classified (principal); L89.324 Pressure ulcer of left buttock, stage 4 | CPT/HCPCS: 11042; A6197 ==

== ENCOUNTER → 2022-06-29 09:35 | Outpatient (BNVA) | payer MEDICARE, MEDICAID, SELFPAY | PROVIDERS: PCP Family Medicine; Visit Provider Nurse Practitioner Family | DX: I96 Gangrene, not elsewhere classified (principal); L89.324 Pressure ulcer of left buttock, stage 4 | CPT/HCPCS: 15271; A6206; A6219; Q4205 ==

== ENCOUNTER → 2022-07-06 08:43 | Outpatient (BNVA) | payer MEDICARE, MEDICAID, SELFPAY | PROVIDERS: PCP Family Medicine; Visit Provider Nurse Practitioner Family | DX: I96 Gangrene, not elsewhere classified (principal); L89.324 Pressure ulcer of left buttock, stage 4 | CPT/HCPCS: 15271; A6206; A6250; Q4205 ==

== ENCOUNTER → 2022-07-13 08:53 | Outpatient (BNVA) | payer MEDICARE, MEDICAID, SELFPAY | PROVIDERS: PCP Family Medicine; Visit Provider Nurse Practitioner Family | DX: L89.324 Pressure ulcer of left buttock, stage 4 (principal); I96 Gangrene, not elsewhere classified | CPT/HCPCS: 11042 ==

== ENCOUNTER → 2022-07-27 08:48 | Outpatient (BNVA) | payer MEDICARE, MEDICAID, SELFPAY | PROVIDERS: PCP Family Medicine; Visit Provider Surgery | DX: I96 Gangrene, not elsewhere classified (principal); L89.324 Pressure ulcer of left buttock, stage 4 | CPT/HCPCS: 11043 ==

== ENCOUNTER → 2022-08-10 09:07 | Outpatient (BNVA) | payer MEDICARE, MEDICAID, SELFPAY | PROVIDERS: PCP Family Medicine; Visit Provider Nurse Practitioner Family | DX: I96 Gangrene, not elsewhere classified (principal); L89.324 Pressure ulcer of left buttock, stage 4 | CPT/HCPCS: 11042; 87070; 87176; 87205; A6197; A6206; A6219 ==

== ENCOUNTER → 2022-08-31 08:57 | Outpatient (BNVA) | payer MEDICARE, MEDICAID, SELFPAY | PROVIDERS: PCP Family Medicine; Visit Provider Nurse Practitioner Family | DX: I96 Gangrene, not elsewhere classified (principal); L89.324 Pressure ulcer of left buttock, stage 4 | CPT/HCPCS: 11042; A6251 ==

== ENCOUNTER → 2022-09-14 09:09 | Outpatient (BNVA) | payer MEDICARE, MEDICAID, SELFPAY | PROVIDERS: PCP Family Medicine; Visit Provider Nurse Practitioner Family | DX: I96 Gangrene, not elsewhere classified (principal); L89.324 Pressure ulcer of left buttock, stage 4 | CPT/HCPCS: 11042 ==

== ENCOUNTER → 2022-09-28 08:53 | Outpatient (BNVA) | payer MEDICARE, MEDICAID, SELFPAY | PROVIDERS: PCP Family Medicine; Visit Provider Surgery | DX: I96 Gangrene, not elsewhere classified (principal); L89.324 Pressure ulcer of left buttock, stage 4 | CPT/HCPCS: 11043 ==

== ENCOUNTER → 2022-10-12 13:14 | Outpatient (BNVA) | payer MEDICARE, MEDICAID, SELFPAY | PROVIDERS: PCP Family Medicine; Visit Provider Surgery | DX: I96 Gangrene, not elsewhere classified (principal); L89.324 Pressure ulcer of left buttock, stage 4 | CPT/HCPCS: 11043; A6197 ==

== ENCOUNTER → 2022-10-26 09:30 | Outpatient (BNVA) | payer MEDICARE, MEDICAID, SELFPAY | PROVIDERS: PCP Family Medicine; Visit Provider Nurse Practitioner Family | DX: I96 Gangrene, not elsewhere classified (principal); L89.324 Pressure ulcer of left buttock, stage 4 | CPT/HCPCS: 11042 ==

== ENCOUNTER → 2022-11-02 10:07 | Outpatient (BNVA) | payer MEDICARE, MEDICAID, SELFPAY | PROVIDERS: PCP Family Medicine; Visit Provider Nurse Practitioner Family | DX: I96 Gangrene, not elsewhere classified (principal); L89.324 Pressure ulcer of left buttock, stage 4 | CPT/HCPCS: 11042 ==

== ENCOUNTER → 2022-11-22 09:00 | Outpatient (BNVA) | payer MEDICARE, MEDICAID, SELFPAY | PROVIDERS: PCP Family Medicine; Visit Provider Surgery | DX: I96 Gangrene, not elsewhere classified (principal); L89.324 Pressure ulcer of left buttock, stage 4 | CPT/HCPCS: 11043; A6197 ==

== ENCOUNTER → 2022-12-07 09:45 | Outpatient (BNVA) | payer MEDICARE, MEDICAID, SELFPAY | PROVIDERS: PCP Family Medicine; Visit Provider Thoracic Surgery (Cardiothoracic Vascular Surgery) | DX: I96 Gangrene, not elsewhere classified (principal); L89.324 Pressure ulcer of left buttock, stage 4 | CPT/HCPCS: 11042 ==

== ENCOUNTER → 2022-12-21 09:50 | Outpatient (BNVA) | payer MEDICARE, MEDICAID, SELFPAY | PROVIDERS: PCP Family Medicine; Visit Provider Thoracic Surgery (Cardiothoracic Vascular Surgery) | DX: I96 Gangrene, not elsewhere classified (principal); L89.324 Pressure ulcer of left buttock, stage 4 | CPT/HCPCS: 11042; A6021 ==

== ENCOUNTER → 2023-01-04 09:53 | Outpatient (BNVA) | payer MEDICARE, MEDICAID, SELFPAY | PROVIDERS: PCP Family Medicine; Visit Provider Thoracic Surgery (Cardiothoracic Vascular Surgery) | DX: I96 Gangrene, not elsewhere classified (principal); L89.324 Pressure ulcer of left buttock, stage 4 | CPT/HCPCS: 11042; A6021 ==

== ENCOUNTER 2023-01-14 10:01 | Outpatient (CLI) | payer MEDICARE, MEDICAID, SELFPAY ==
[2023-01-14] MEDS: iohexol 350 mg/mL 500 mL Btl (per mL) IV (10:42)
--- NOTE | 2023-01-14 11:30 | CT_ITS ---
WS: [id number] CT PELVIS WITH AND WITHOUT CONTRAST. HISTORY: L89.324 - Pressure ulcer of left buttock, stage 4 TECHNIQUE: Contiguous imaging is performed of the pelvis with and without contrast. Coronal and sagit rafita reformats are reviewed. All CT scans at [facility] use at least one of these dose optimiz ation techniques: automated exposure control; mA and/or kV adjustment per patient size (includes targ eted exams where dose is matched to clinical indication); or iterative reconstruction. Contrast: Omnipaque 350; 85 mL IV. DLP: 495.99 mGy.cm COMPARISON: 11/07/2020 RIGHT pelvis: Prior ORIF, hardware appears in good position. No destructive bone lesions. There is ve ry minimal soft tissue thickening consistent with decubitus ulcer over the posterior RIGHT pelvis ext ending to the ischial tuberosity. There is no enhancement or fluid collection. This is a new area of soft tissue thickening as compared to 11/07/2020. Ulcer measures 2.5 x 2.0 cm. LEFT pelvis: Improvement in the acute appearing ulceration in the posterior LEFT gluteal region. The soft tissue tract extends to an abnormal ischial tuberosity. There is soft tissue thickening along th e tract with the wall measuring 2.0 cm. Ulceration extends over a length of 5.0 cm. Destruction of th e ischial tuberosity with sclerosis and small bony fragments. New osseous changes since 2019. There i s a small amount of fluid with minimal enhancement along the ulceration tract and a few tiny foci of air. Heavy calcification in the distal aorta and iliac arteries. Suprapubic catheter reidentified. 13 mm b ladder calcification. CT/CT pelvis wo/w con [id number] IMPRESSION: 1. Previously described LEFT gluteal soft tissue ulceration has decreased in s ize since 11/07/2020. There is still a small amount of soft tissue thickening a nd enhancement along the ulceration tract. 2. Chronic changes involving the LEFT ischial tuberosity at the site of the de cubitus ulcer. Sclerotic changes within the ischial tuberosity with bony fragme nt likely due to healed osteomyelitis. 3. RIGHT gluteal decubitus ulcer is new since 11/07/2020. No abscess or osteom yelitis noted.
== END 2023-01-14 10:02 | disposition home or self-care (01) ==
LOC: RAD 10:02
PROVIDERS: PCP Family Medicine; Visit Provider Thoracic Surgery (Cardiothoracic Vascular Surgery)
DX: L89.324 Pressure ulcer of left buttock, stage 4 (principal)
CPT/HCPCS: 72194; Q9967

== ENCOUNTER → 2023-01-18 09:49 | Outpatient (BNVA) | payer MEDICARE, MEDICAID, SELFPAY | PROVIDERS: PCP Family Medicine; Visit Provider Thoracic Surgery (Cardiothoracic Vascular Surgery) | DX: I96 Gangrene, not elsewhere classified (principal); L89.324 Pressure ulcer of left buttock, stage 4 | CPT/HCPCS: 11042 ==

== ENCOUNTER → 2023-02-01 10:17 | Outpatient (BNVA) | payer MEDICARE, MEDICAID, SELFPAY | PROVIDERS: PCP Family Medicine; Visit Provider Thoracic Surgery (Cardiothoracic Vascular Surgery) | DX: I96 Gangrene, not elsewhere classified (principal); L89.324 Pressure ulcer of left buttock, stage 4 | CPT/HCPCS: 11042 ==

== ENCOUNTER → 2023-02-15 09:49 | Outpatient (BNVA) | payer MEDICARE, MEDICAID, SELFPAY | PROVIDERS: PCP Family Medicine; Visit Provider Thoracic Surgery (Cardiothoracic Vascular Surgery) | DX: I96 Gangrene, not elsewhere classified (principal); L89.324 Pressure ulcer of left buttock, stage 4 | CPT/HCPCS: 11042; A6251 ==

== ENCOUNTER → 2023-03-01 09:49 | Outpatient (BNVA) | payer MEDICARE, MEDICAID, SELFPAY | PROVIDERS: PCP Family Medicine; Visit Provider Thoracic Surgery (Cardiothoracic Vascular Surgery) | DX: L89.324 Pressure ulcer of left buttock, stage 4 (principal) | CPT/HCPCS: 97597; A6219 ==

== ENCOUNTER → 2023-03-15 09:11 | Outpatient (BNVA) | payer MEDICARE, MEDICAID, SELFPAY | PROVIDERS: PCP Family Medicine; Visit Provider Thoracic Surgery (Cardiothoracic Vascular Surgery) | DX: I96 Gangrene, not elsewhere classified (principal); L89.324 Pressure ulcer of left buttock, stage 4 | CPT/HCPCS: 11042; A6212 ==

== ENCOUNTER → 2023-04-12 09:56 | Outpatient (BNVA) | payer MEDICARE, MEDICAID, SELFPAY | PROVIDERS: PCP Family Medicine; Visit Provider Thoracic Surgery (Cardiothoracic Vascular Surgery) | DX: I96 Gangrene, not elsewhere classified (principal); L89.324 Pressure ulcer of left buttock, stage 4 | CPT/HCPCS: 97597; A6219 ==

== ENCOUNTER → 2023-04-26 09:03 | Outpatient (BNVA) | payer MEDICARE, MEDICAID, SELFPAY | PROVIDERS: PCP Family Medicine; Visit Provider Thoracic Surgery (Cardiothoracic Vascular Surgery) | DX: I96 Gangrene, not elsewhere classified (principal); L89.324 Pressure ulcer of left buttock, stage 4 | CPT/HCPCS: 11042; A6219 ==

== ENCOUNTER 2023-05-02 16:06 | Outpatient (CLI) | payer MEDICARE, MEDICAID, SELFPAY ==
--- NOTE | 2023-05-02 16:00 | MR_ITS ---
WS: [id number] MRI PELVIS with and without CONTRAST. COMPARISON: CT pelvis 01/14/2023, prior MRI 02/28/2021 Multiplanar, multisequence imaging is performed with and without contrast. Status post MultiHance. Prior RIGHT hip ORIF. Suprapubic Ramos catheter is present in a nondistended bladder. Soft tissue ulceration tract with enhancement noted in the LEFT gluteal region. Tract extends oblique ly through the posterior soft tissues to abut the LEFT ischial tuberosity. Loss of the normal archite cture of the ischial tuberosity from prior episodes of osteomyelitis with healing and bony fragmentat ion. No definite enhancement involving the bone today. The enhancement along the decubitus ulcer trac t extends very close to the tuberosity. The tract extends over a length of 5.0 cm and a width of 1.1 cm. Interval improvement since 2020 of the tract. The tract is smaller and there is less enhancement and no convincing evidence for osteomyelitis. Soft tissue track and skin thickening in the RIGHT gluteal soft tissues extending into the ischial tu berosity appears improved since the CT of 01/14/2023. No enhancement or remaining significant soft tis sol tract. No osteomyelitis. MR/MR pelvis wo/w con [id number] IMPRESSION: 1. Interval resolution of the soft tissue thickening associated with the RIGHT gluteal region extending to the ischial tuberosity as described on 01/14/2023. No enhancement or osteomyelitis. 2. Continued decrease in size of the LEFT gluteal decubitus ulcer. There is st ill peripheral enhancement with the tract measuring 5.0 cm in length x 1.5 cm. No focal abscess collection. No osteomyelitis. No change in the chronic osteomy elitis with healing of the LEFT ischial tuberosity.
[2023-05-02] MEDS: gadobenate dimeglumine 20 mL vial IV (17:16)
== END 2023-05-02 16:07 | disposition home or self-care (01) ==
LOC: RAD 16:09
PROVIDERS: PCP Family Medicine; Visit Provider Thoracic Surgery (Cardiothoracic Vascular Surgery)
DX: L89.324 Pressure ulcer of left buttock, stage 4 (principal); Z98.890 Other specified postprocedural states; Z96.0 Presence of urogenital implants
CPT/HCPCS: 11042; 72197; A6219; A9577

== ENCOUNTER → 2023-05-10 10:04 | Outpatient (BNVA) | payer MEDICARE, MEDICAID, SELFPAY | PROVIDERS: PCP Family Medicine; Visit Provider Thoracic Surgery (Cardiothoracic Vascular Surgery) | DX: I96 Gangrene, not elsewhere classified (principal); L89.324 Pressure ulcer of left buttock, stage 4 | CPT/HCPCS: 11042; A6219 ==

== ENCOUNTER → 2023-05-24 09:29 | Outpatient (BNVA) | payer MEDICARE, MEDICAID, SELFPAY | PROVIDERS: PCP Family Medicine; Visit Provider Thoracic Surgery (Cardiothoracic Vascular Surgery) | DX: I96 Gangrene, not elsewhere classified (principal); L89.324 Pressure ulcer of left buttock, stage 4 | CPT/HCPCS: 97597; A6212 ==

== ENCOUNTER → 2023-06-07 08:45 | Outpatient (BNVA) | payer MEDICARE, MEDICAID, SELFPAY | PROVIDERS: PCP Family Medicine; Visit Provider Thoracic Surgery (Cardiothoracic Vascular Surgery) | DX: I96 Gangrene, not elsewhere classified (principal); L89.324 Pressure ulcer of left buttock, stage 4 | CPT/HCPCS: 11042; A6219 ==

== ENCOUNTER → 2023-06-14 09:16 | Outpatient (BNVA) | payer MEDICARE, MEDICAID, SELFPAY | PROVIDERS: PCP Family Medicine; Visit Provider Thoracic Surgery (Cardiothoracic Vascular Surgery) | DX: I96 Gangrene, not elsewhere classified (principal); L89.324 Pressure ulcer of left buttock, stage 4 | CPT/HCPCS: 11042 ==

== ENCOUNTER → 2023-06-21 09:21 | Outpatient (BNVA) | payer MEDICARE, MEDICAID, SELFPAY | PROVIDERS: PCP Family Medicine; Visit Provider Thoracic Surgery (Cardiothoracic Vascular Surgery) | DX: I96 Gangrene, not elsewhere classified (principal); L89.324 Pressure ulcer of left buttock, stage 4 | CPT/HCPCS: 97597; A6219 ==

== ENCOUNTER → 2023-07-05 08:50 | Outpatient (BNVA) | payer MEDICARE, MEDICAID, SELFPAY | PROVIDERS: PCP Family Medicine; Visit Provider Thoracic Surgery (Cardiothoracic Vascular Surgery) | DX: I96 Gangrene, not elsewhere classified (principal); L89.324 Pressure ulcer of left buttock, stage 4 | CPT/HCPCS: 11042 ==

== ENCOUNTER → 2023-07-19 09:07 | Outpatient (BNVA) | payer MEDICARE, MEDICAID, SELFPAY | PROVIDERS: PCP Family Medicine; Visit Provider Thoracic Surgery (Cardiothoracic Vascular Surgery) | DX: I96 Gangrene, not elsewhere classified (principal); L89.324 Pressure ulcer of left buttock, stage 4 | CPT/HCPCS: 11042; A6210; A6219 ==

== ENCOUNTER → 2023-08-02 09:44 | Outpatient (BNVA) | payer MEDICARE, MEDICAID, SELFPAY | PROVIDERS: PCP Family Medicine; Visit Provider Thoracic Surgery (Cardiothoracic Vascular Surgery) | DX: I96 Gangrene, not elsewhere classified (principal); L89.324 Pressure ulcer of left buttock, stage 4 | CPT/HCPCS: 11042; A6210 ==

== ENCOUNTER → 2023-08-30 09:02 | Outpatient (BNVA) | payer MEDICARE, MEDICAID, SELFPAY | PROVIDERS: PCP Family Medicine; Visit Provider Thoracic Surgery (Cardiothoracic Vascular Surgery) | DX: L89.324 Pressure ulcer of left buttock, stage 4 (principal) | CPT/HCPCS: 87070; 87077; 87176; 87186; 87205; 97597; A6210; A6212; A6251 ==

== ENCOUNTER → 2023-09-13 08:51 | Outpatient (BNVA) | payer MEDICARE, MEDICAID, SELFPAY | PROVIDERS: PCP Family Medicine; Visit Provider Thoracic Surgery (Cardiothoracic Vascular Surgery) | DX: L89.324 Pressure ulcer of left buttock, stage 4 (principal) | CPT/HCPCS: 11042 ==

== ENCOUNTER → 2023-09-20 09:23 | Outpatient (BNVA) | payer MEDICARE, MEDICAID, SELFPAY | PROVIDERS: PCP Family Medicine; Visit Provider Nurse Practitioner Family | DX: L89.324 Pressure ulcer of left buttock, stage 4 (principal) | CPT/HCPCS: 11042 ==

== ENCOUNTER → 2023-10-04 09:04 | Outpatient (BNVA) | payer MEDICARE, MEDICAID, SELFPAY | PROVIDERS: PCP Family Medicine; Visit Provider Thoracic Surgery (Cardiothoracic Vascular Surgery) | DX: I96 Gangrene, not elsewhere classified (principal); L89.324 Pressure ulcer of left buttock, stage 4 | CPT/HCPCS: 11042; A6220 ==

== ENCOUNTER → 2023-10-11 09:52 | Outpatient (BNVA) | payer MEDICARE, MEDICAID, SELFPAY | PROVIDERS: PCP Family Medicine; Visit Provider Thoracic Surgery (Cardiothoracic Vascular Surgery) | DX: L89.324 Pressure ulcer of left buttock, stage 4 (principal) | CPT/HCPCS: 11042 ==

== ENCOUNTER → 2023-10-24 15:18 | Outpatient (BNVA) | payer MEDICARE, MEDICAID, SELFPAY | PROVIDERS: PCP Family Medicine; Visit Provider Nurse Practitioner Family | DX: L89.324 Pressure ulcer of left buttock, stage 4 (principal) | CPT/HCPCS: 11042 ==

== ENCOUNTER → 2023-11-08 09:10 | Outpatient (BNVA) | payer MEDICARE, MEDICAID, SELFPAY | PROVIDERS: PCP Family Medicine; Visit Provider Thoracic Surgery (Cardiothoracic Vascular Surgery) | DX: I96 Gangrene, not elsewhere classified (principal); L89.324 Pressure ulcer of left buttock, stage 4 | CPT/HCPCS: 11042 ==

== ENCOUNTER → 2023-11-22 09:16 | Outpatient (BNVA) | payer MEDICARE, MEDICAID, SELFPAY | PROVIDERS: PCP Family Medicine; Visit Provider Nurse Practitioner Family | DX: I96 Gangrene, not elsewhere classified (principal); L89.324 Pressure ulcer of left buttock, stage 4 | CPT/HCPCS: 11042; A6251 ==

== ENCOUNTER → 2023-12-06 09:15 | Outpatient (BNVA) | payer MEDICARE, MEDICAID, SELFPAY | PROVIDERS: PCP Family Medicine; Visit Provider Thoracic Surgery (Cardiothoracic Vascular Surgery) | DX: I96 Gangrene, not elsewhere classified (principal); L89.324 Pressure ulcer of left buttock, stage 4 | CPT/HCPCS: 11042; A6251 ==

== ENCOUNTER → 2024-01-03 09:19 | Outpatient (BNVA) | payer MEDICARE, MEDICAID, SELFPAY | PROVIDERS: PCP Family Medicine; Visit Provider Thoracic Surgery (Cardiothoracic Vascular Surgery) | DX: I96 Gangrene, not elsewhere classified (principal); L89.324 Pressure ulcer of left buttock, stage 4 | CPT/HCPCS: 97597; A6220; A6251 ==

== ENCOUNTER → 2024-02-06 13:04 | Outpatient (BNVA) | payer MEDICARE, MEDICAID, SELFPAY | PROVIDERS: PCP Family Medicine; Visit Provider Thoracic Surgery (Cardiothoracic Vascular Surgery) | DX: I96 Gangrene, not elsewhere classified (principal); L89.324 Pressure ulcer of left buttock, stage 4 | CPT/HCPCS: 97597; A6220; A6252 ==

== ENCOUNTER → 2024-03-05 12:55 | Outpatient (BNVA) | payer MEDICARE, MEDICAID, SELFPAY | PROVIDERS: PCP Family Medicine; Visit Provider Thoracic Surgery (Cardiothoracic Vascular Surgery) | DX: I96 Gangrene, not elsewhere classified (principal); L89.324 Pressure ulcer of left buttock, stage 4 | CPT/HCPCS: 97597; A6220; A6252 ==

== ENCOUNTER → 2024-04-02 12:58 | Outpatient (BNVA) | payer MEDICARE, MEDICAID, SELFPAY | PROVIDERS: PCP Family Medicine; Visit Provider Thoracic Surgery (Cardiothoracic Vascular Surgery) | DX: L89.324 Pressure ulcer of left buttock, stage 4 (principal) | CPT/HCPCS: 97597 ==

== ENCOUNTER → 2024-05-07 13:02 | Outpatient (BNVA) | payer MEDICARE, MEDICAID, SELFPAY | PROVIDERS: PCP Family Medicine; Visit Provider Thoracic Surgery (Cardiothoracic Vascular Surgery) | DX: L89.324 Pressure ulcer of left buttock, stage 4 (principal) | CPT/HCPCS: 97597; A6220; A6251 ==

== ENCOUNTER → 2024-06-11 13:04 | Outpatient (BNVA) | payer MEDICARE, MEDICAID, SELFPAY | PROVIDERS: PCP Family Medicine; Visit Provider Thoracic Surgery (Cardiothoracic Vascular Surgery) | DX: L89.324 Pressure ulcer of left buttock, stage 4 (principal) | CPT/HCPCS: 97597 ==

== ENCOUNTER → 2024-07-15 10:42 | Outpatient (BNVA) | payer MEDICARE, MEDICAID, SELFPAY | PROVIDERS: PCP Family Medicine; Visit Provider Thoracic Surgery (Cardiothoracic Vascular Surgery) | DX: L89.324 Pressure ulcer of left buttock, stage 4 (principal) | CPT/HCPCS: 87070; 87075; 87077; 87186; 87205; 97597; A6220 ==

== ENCOUNTER → 2024-08-14 09:47 | Outpatient (BNVA) | payer MEDICARE, MEDICAID, SELFPAY | PROVIDERS: PCP Family Medicine; Visit Provider Thoracic Surgery (Cardiothoracic Vascular Surgery) | DX: L89.324 Pressure ulcer of left buttock, stage 4 (principal); G82.50 Quadriplegia, unspecified | CPT/HCPCS: 87070; 87077; 87176; 87186; 87205; 97597; A6220; A6252 ==

== ENCOUNTER → 2024-08-24 10:29 | Outpatient (BNVA) | payer MEDICARE, MEDICAID, SELFPAY | PROVIDERS: PCP Family Medicine; Visit Provider Thoracic Surgery (Cardiothoracic Vascular Surgery) | DX: G82.50 Quadriplegia, unspecified (principal); L89.324 Pressure ulcer of left buttock, stage 4 | CPT/HCPCS: 80053; 84134; 85025; 85651; 86140 ==

== ENCOUNTER 2024-08-27 13:00 | Outpatient (CLI) | payer MEDICARE, MEDICAID, SELFPAY ==
--- NOTE | 2024-08-27 13:00 | CT_ITS ---
WS: [id number] CT ABDOMEN AND PELVIS WITH CONTRAST HISTORY: L89.324 - Pressure ulcer of left buttock, stage 4 TECHNIQUE: Imaging performed of the abdomen and pelvis with IV contrast. Single phase imaging of the abdomen. Coronal and sagittal reformats are submitted. All CT scans at [facility] use at [address] one of these dose optimization techniques: automated exposure control; mA and/or kV adjustment per patient size (includes targeted exams where dose is matched to clinical indication); or iterative re construction. IV CONTRAST: Omnipaque 350; 80 mL IV. Oral contrast: No DLP: 220.14 mGy.cm COMPARISON: 11/07/2020, 01/14/2023 Lower thorax: Mild pulmonary hyperexpansion. No pneumonia. Heart is normal size. No hiatal hernia. Liver/biliary system: No interval change. No mass identified. There is very slight bile duct dilatati on. Mild volume loss with fatty replacement along the falciform ligament. Similar to prior studies. G allbladder is negative. Gallbladder: Normal. No gallstones or wall thickening. No pericholecystic fluid. Pancreas: Poorly visualized due to lack of visceral fat. No mass or pancreatic duct obstruction. Spleen: Normal size spleen. No mass or infarct. Adrenal glands: Normal. Right kidney: Normal. Left kidney: Normal. Aorta: Mild atherosclerosis with no aneurysm. Lymphadenopathy: None. Free fluid: None. GI tract: No obstruction or colitis. Abdominal wall: Marked thinning of the abdominal wall musculature. Pelvis: Suprapubic Ramos catheter. Urinary bladder is not distended. Atrophic uterus. Uterus is poorl y visualized on this examination. Large pelvic collateral vessels. Reidentified is the LEFT gluteal decubitus ulcer tract extending to the LEFT ischial tuberosity. This tract extends over a length of 3.4 cm and transversely by 2.5 cm. There is no abscess. There is mild enhancement along the wall. There is new air along the tract which was not present on the most recen t exam. This may be due to recent debridement. Sclerotic fragmented ischial tuberosity from treated o steomyelitis. Compared to the most recent examination of 01/14/2023 no progression of osteomyelitis. Persistent mild soft tissue along the RIGHT gluteal region extending to the ischial tuberosity was de scribed recently by MRI on 05/02/2023. No progression since the prior CT of 01/14/2023. If anything cont inued resolution of the tract. Slight changes in the bone at the ischial tuberosity are stable. Canno t confirm osteomyelitis. Bones: Prior ORIF RIGHT hip. CT/CT abdomen pelvis w con* [id number] IMPRESSION: 1. Decubitus ulcer tract extending to the LEFT pelvis to the ischial tuberosit y is identified measuring 3.4 x 2.5 cm. There is mild enhancement along the tra ct but there is no abscess. New air along the tract may be due to debridement. 2. LEFT ischial tuberosity sclerosis and fragmentation from treated osteomyeli tis. No new lytic area or suspicious finding for ongoing osteomyelitis. 3. Markedly atrophic uterus is poorly visualized. Bilateral pelvic venous emilie estion. 4. Suprapubic catheter, nondistended bladder. 5. Stable RIGHT gluteal decubitus ulcer. No acute abscess or progression.
[2024-08-27] MEDS: iohexol 350 mg/mL 500 mL Btl (per mL) IV (14:03)
== END 2024-08-27 13:04 | disposition home or self-care (01) ==
PROVIDERS: PCP Family Medicine; Visit Provider Thoracic Surgery (Cardiothoracic Vascular Surgery)
DX: L89.324 Pressure ulcer of left buttock, stage 4 (principal); G82.50 Quadriplegia, unspecified; M62.58 Muscle wasting and atrophy, not elsewhere classified, other site; Z96.0 Presence of urogenital implants; N85.8 Other specified noninflammatory disorders of uterus
CPT/HCPCS: 74177

== ENCOUNTER → 2024-09-16 10:15 | Outpatient (BNVA) | payer MEDICARE, MEDICAID, SELFPAY | PROVIDERS: PCP Family Medicine; Visit Provider Thoracic Surgery (Cardiothoracic Vascular Surgery) | DX: L89.324 Pressure ulcer of left buttock, stage 4 (principal) | CPT/HCPCS: 97597; A6252 ==

== ENCOUNTER → 2024-10-21 13:02 | Outpatient (BNVA) | payer MEDICARE, MEDICAID, SELFPAY | PROVIDERS: PCP Family Medicine; Visit Provider Thoracic Surgery (Cardiothoracic Vascular Surgery) | DX: I96 Gangrene, not elsewhere classified (principal); L89.324 Pressure ulcer of left buttock, stage 4 | CPT/HCPCS: 97597; A6220; A6252 ==